=== PATIENT | female | born 1945 | race African-American/Black ===

== ENCOUNTER 2018-01-05 11:40 | Inpatient (IN) | payer MEDICARE, OTHER ==
[~2018-01-05] VITALS: Ht 157.5 cm; Wt 83.9 kg
[~2018-01-05 11:40] MED LIST: ASPIRIN81 MG ORAL; ATIVAN1 MG ORAL; BACLOFEN10 MG ORAL; BENADRYL50 MG ORAL; BUSPIRONE HCL5 M2 ORAL; CARDIZEM60 MG ORAL; CATAPRES0.2 MG ORAL; CEFEPIME HCL1 GM IVPB; CLONIDINE HCL0.1 MG PO; CLONIDINE HCL0.2 MG PO; COLACE250 MG ORAL; COZAAR50 MG ORAL; DIAZEPAM5 MG; DIGOXIN0.125 MG/2 ORAL; DIGOXIN0.25 MG/5 PO; DIGOXIN125 MCG ORAL; DILAUDID1 MG/1 ML IVP; DILTIAZEM HCL60 MG PO; DOCUSATE SODIU100 MG ORAL; DUONEB 0.5-3(2.53 ML HHN; FLUOXETINE HCL20 MG ORAL; FUROSEMIDE40 MG ORAL; HALDOL1 MG ORAL; HEPARIN1000 UNIT/ SUBQ; HYDROCODON-ACE1 EA13 ORAL; IBUPROFEN600 MG ORAL; ISOSORBIDE MONO20 MG PO; LASIX20 M1 ORAL; LEVEMIR100 UNIT/1 SUBQ; LEVOTHYROXINE75 MCG ORAL; LIDODERM700 M1 TOPIC; LISINOPRIL5 MG ORAL; LOSARTAN POTAS100 MG ORAL; LOSARTAN POTASS25 MG ORAL; LOSARTAN POTASS25 MG PO; LOTENSIN40 MG ORAL; METOPROLOL TART25 MG ORAL; MIRTAZAPINE15 M3 ORAL; MOBIC15 MG ORAL; MYLANTA30 M1 PO; NAMENDA XR28 MG PO; NEURONTIN300 MG PO; NITRO-BID1 GM TOPIC; NITROGLYCERIN1 EAC2 TD; NITROSTAT0.4 M1 SL; NORCO 5-325 TA1 EACH ORAL; NOVOLIN 70100 UNIT/1 SUBQ; NOVOLOG100 UNITS1 SUBQ; OMEPRAZOLE20 M3 ORAL; PROTONIX40 MG ORAL; PROZAC20 MG ORAL; REMERON15 MG ORAL; SEROQUEL50 MG ORAL; SOLU-MEDRO40 MG/1 M2 IVP; TRAMADOL HCL100 M2 ORAL; TRAMADOL HCL50 MG ORAL; TRAZODONE HCL150 MG ORAL; TYLENOL650 MG/20. ORAL; VICODIN ES 7.51 EACH ORAL
--- NOTE | 2018-01-05 11:44 | Emergency Room Report ---
History of Present Illness General Source: Patient, EMS Present Illness HPI She is a 72-year-old female brought in by EMS after increased chest pain and shortness of breath. Patient had prior history of COPD as well as congestive heart failure. The patient known diabetic. The patient had been given aspirin as well as nitroglycerin with some improvement. The pain is described as a pressure sensation which radiated to her arm. The patient was noted to be taking Lasix as well as medications for diabetes. The patient is a resident at [facility]. Allergies: Coded Allergies: MORPHINE (Verified Allergy, Mild, Rash, 08/23/12) SHELLFISH DERIVED (Unverified Allergy, Unknown, 01/01/15) ZOLPIDEM TARTRATE (Verified Adverse Reaction, Mild, Altered Mental Status , 11/09/12) severe confusion Patient History Past Medical History: see triage record Reviewed Nursing Documentation: PMH: Agreed; PSxH: Agreed Now: No Review of Systems All Other Systems: negative except mentioned in HPI Physical Exam Sp02 EP Interpretation: reviewed, normal General Appearance: normal inspection, alert, GCS 15, obese, Chronically Ill Head: atraumatic ENT: normal ENT inspection, hearing grossly normal, normal voice Neck: normal inspection, supple, no bony tend, limited range of motion Respiratory: normal inspection, no respiratory distress, no retraction, wheezing Cardiovascular #1: regular rate, rhythm, edema - trace Gastrointestinal: normal inspection, normal bowel sounds, non tender, soft, no guarding, no hernia Musculoskeletal: normal inspection, back normal, normal range of motion Neurologic: normal inspection, alert, oriented x3, responsive, speech normal, motor weakness Psychiatric: normal inspection, judgement/insight normal, mood/affect normal Skin: normal inspection, normal color, no rash Medical Decision Making Diagnostic Impression: Primary Impression: Acute coronary syndrome Additional Impression: COPD with exacerbation ER Course Patient presented for chest pain. Differential diagnosis included but was not limited to acute coronary syndrome, pulmonary embolism, pneumonia, aortic dissection, shingles, pneumothorax, aortic dissection, esophageal rupture, pericarditis. Because of complexity of patient's case laboratory testing and imaging studies were ordered. EKG interpreted by me showed normal sinus rhythm with a rate of [address] or T wave changes.Patient was given breathing treatment as well as Solu -Medrol for COPD. The patient was given Toradol for pain. Patient was discussed with Dr. Boland for inpatient management due to primary care physician Labs Test 01/05/18 12:20 01/05/18 12:45 White Blood Count 8.6 K/UL (4.8-10.8) Red Blood Count 4.84 M/UL (4.20-5.40) Hemoglobin 12.2 G/DL (12.0-16.0) Hematocrit 38.3 % (37.0-47.0) Mean Corpuscular Volume 79 FL (80-99) Mean Corpuscular Hemoglobin 25.1 PG (27.0-31.0) Mean Corpuscular Hemoglobin Concent 31.8 G/DL (32.0-36.0) Red Cell Distribution Width 11.5 % (11.6-14.8) Platelet Count 285 K/UL (150-450) Mean Platelet Volume 6.6 FL (6.5-10.1) Neutrophils (%) (Auto) 59.4 % (45.0-75.0) Lymphocytes (%) (Auto) 29.7 % (20.0-45.0) Monocytes (%) (Auto) 7.6 % (1.0-10.0) Eosinophils (%) (Auto) 2.7 % (0.0-3.0) Basophils (%) (Auto) 0.7 % (0.0-2.0) Sodium Level 133 MMOL/L (136-145) Potassium Level 4.3 MMOL/L (3.5-5.1) Chloride Level 100 MMOL/L (98-107) Carbon Dioxide Level 29 MMOL/L (21-32) Anion Gap 4 mmol/L (5-15) Blood Urea Nitrogen 8 mg/dL (7-18) Creatinine 0.7 MG/DL (0.55-1.30) Estimat Glomerular Filtration Rate mL/min (>60) Glucose Level 264 MG/DL (74-106) Lactic Acid Level 1.20 mmol/L (0.4-2.0) Calcium Level 9.5 MG/DL (8.5-10.1) Troponin I 0.000 ng/mL (0.000-0.056) EKG Diagnostic Results Rate: normal Rhythm: NSR ST Segments: no acute changes Status: improved Disposition: ADMITTED INPATIENT Condition: Stable Art Neri MD Jan 05, 2018 11:44
[2018-01-05] MEDS ORDERED: SOLARAZE100 GM TP (11:47)
[2018-01-05] MEDS ORDERED: METOPROLOL SUCC25 MG ORAL (11:47)
[2018-01-05] MEDS ORDERED: LIPITOR20 MG ORAL (11:47)
[2018-01-05] MEDS ORDERED: ISORDIL30 MG GT (11:47)
[2018-01-05] MEDS ORDERED: NAMENDA10 MG ORAL (11:47)
[2018-01-05] MEDS ORDERED: PROTONIX40 MG ORAL (11:47)
[2018-01-05] MEDS ORDERED: MELATONIN3 MG ORAL (11:47)
[2018-01-05 11:50] VITALS: BP 131/71
[2018-01-05] MEDS ORDERED: Albuterol/Ipratropium 3ml neb HHN ONE (12:00)
[2018-01-05 12:30] VITALS: BP 107/83
[2018-01-05] MEDS ORDERED: Solu-MEDROL 125mg Inj IVP ONE (12:30)
[2018-01-05 12:40] LABS: BASOPHILS % (AUTO) 0.7 % (0.0-2.0); EOSINOPHILS % (AUTO) 2.7 % (0.0-3.0); HEMATOCRIT 38.3 % (37.0-47.0); HEMOGLOBIN 12.2 G/DL (12.0-16.0); LYMPHOCYTES % (AUTO) 29.7 % (20.0-45.0); MEAN CORPUSCULAR VOLUME 79 FL (80-99); MONOCYTES % (AUTO) 7.6 % (1.0-10.0); NEUTROPHILS % (AUTO) 59.4 % (45.0-75.0); PLATELET COUNT 285 K/UL (150-450); RED BLOOD COUNT 4.84 M/UL (4.20-5.40); RED CELL DISTRIBUTION WIDTH 11.5 % (11.6-14.8); WHITE BLOOD COUNT 8.6 K/UL (4.8-10.8)
[2018-01-05] MEDS ORDERED: Ketorolac 30mg Inj IV ONE (12:45)
[2018-01-05 13:05] LABS: ANION GAP 4 mmol/L (5-15); BLOOD UREA NITROGEN 8 mg/dL (7-18); CALCIUM 9.5 MG/DL (8.5-10.1); CARBON DIOXIDE 29 MMOL/L (21-32); CHLORIDE 100 MMOL/L (98-107); CREATININE 0.7 MG/DL (0.55-1.30); POTASSIUM 4.3 MMOL/L (3.5-5.1); SODIUM 133 MMOL/L (136-145)
[2018-01-05 13:20] LABS: APPEARANCE,URINE CLEAR; BILIRUBIN, URINE NEGATIVE (NEGATIVE); COLOR,URINE PALE YELLOW; GLUCOSE, URINE (UA) 1+ (NEGATIVE); KETONES,URINE NEGATIVE (NEGATIVE); LEUKOCYTE ESTERASE ,URINE NEGATIVE (NEGATIVE); NITRITE,URINE NEGATIVE (NEGATIVE); PH,URINE 5 (4.5-8.0); PROTEIN,URINE NEGATIVE (NEGATIVE); UROBILINOGEN,URINE NORMAL MG/DL (0.0-1.0)
[2018-01-05 13:21] LABS: ALANINE AMINOTRANSFERASE 17 U/L (12-78); ALBUMIN 3.5 G/DL (3.4-5.0); ALKALINE PHOSPHATASE 98 U/L (46-116); ASPARTATE AMINO TRANSFERASE 10 U/L (15-37); BILIRUBIN,TOTAL 0.2 MG/DL (0.2-1.0); CKMB 0.6 NG/ML (0.0-3.6); CREATINE KINASE 57 U/L (26-308)
[2018-01-05 14:00] VITALS: BP 140/82
--- NOTE | 2018-01-05 14:39 | Diagnostic Imaging Report ---
Indication: Shortness of breath Technique: One view of the chest Comparison: 02/19/2016 Findings: No acute infiltrates, effusions, or congestion. Tortuous calcified aorta. Normal heart size. Upper mediastinum unremarkable. No significant change Impression: No acute process.
[2018-01-05] MEDS: Norco 5mg/325mg tab ORAL PRN ×2 (16:05→20:54)
[2018-01-05 16:52] VITALS: BP 147/78
[2018-01-05] MEDS: NovoLOG Insulin Flexpen SUBQ SCH ×2 (17:12→20:56)
[2018-01-05] MEDS: Losartan 50mg tab ORAL SCH (18:06)
--- NOTE | 2018-01-05 19:27 | Cardiology Progress Note ---
Assessment/Plan Assessment/Plan The patient is seen and examined, full consult note will be dictated shortly. Objective Last 24 Hour Vital Signs Date Time Temp Pulse Resp B/P (MAP) Pulse Ox O2 Delivery O2 Flow Rate FiO2 01/05/18 18:06 147/78 01/05/18 16:52 97.7 65 24 147/78 (101) 97 65 01/05/18 16:35 97.7 01/05/18 15:57 74 01/05/18 15:30 Nasal Cannula 2.0 01/05/18 14:55 20 145/78 98 Nasal Cannula 1.0 01/05/18 14:00 72 16 140/82 100 Nasal Cannula 1.0 28 01/05/18 12:40 85 16 100 Nasal Cannula 2.0 01/05/18 12:30 66 19 107/83 98 Nasal Cannula 1.0 24 01/05/18 12:29 24 01/05/18 12:29 98 16 99 Nasal Cannula 1.0 24 01/05/18 12:29 98 16 Nasal Cannula 1.0 01/05/18 11:50 95 16 Nasal Cannula 1.0 01/05/18 11:50 98.1 65 16 131/71 100 Room Air 01/05/18 11:37 97.9 75 20 148/79 96 Room Air Laboratory Tests Test 01/05/18 12:20 01/05/18 12:45 White Blood Count 8.6 K/UL (4.8-10.8) Red Blood Count 4.84 M/UL (4.20-5.40) Hemoglobin 12.2 G/DL (12.0-16.0) Hematocrit 38.3 % (37.0-47.0) Mean Corpuscular Volume 79 FL (80-99) L Mean Corpuscular Hemoglobin 25.1 PG (27.0-31.0) L Mean Corpuscular Hemoglobin Concent 31.8 G/DL (32.0-36.0) L Red Cell Distribution Width 11.5 % (11.6-14.8) L Platelet Count 285 K/UL (150-450) Mean Platelet Volume 6.6 FL (6.5-10.1) Neutrophils (%) (Auto) 59.4 % (45.0-75.0) Lymphocytes (%) (Auto) 29.7 % (20.0-45.0) Monocytes (%) (Auto) 7.6 % (1.0-10.0) Eosinophils (%) (Auto) 2.7 % (0.0-3.0) Basophils (%) (Auto) 0.7 % (0.0-2.0) Sodium Level 133 MMOL/L (136-145) L Potassium Level 4.3 MMOL/L (3.5-5.1) Chloride Level 100 MMOL/L (98-107) Carbon Dioxide Level 29 MMOL/L (21-32) Anion Gap 4 mmol/L (5-15) L Blood Urea Nitrogen 8 mg/dL (7-18) Creatinine 0.7 MG/DL (0.55-1.30) Estimat Glomerular Filtration Rate mL/min (>60) Glucose Level 264 MG/DL (74-106) H Lactic Acid Level 1.20 mmol/L (0.4-2.0) Calcium Level 9.5 MG/DL (8.5-10.1) Total Bilirubin 0.2 MG/DL (0.2-1.0) Aspartate Amino Transf (AST/SGOT) 10 U/L (15-37) L Alanine Aminotransferase (ALT/SGPT) 17 U/L (12-78) Alkaline Phosphatase 98 U/L (46-116) Total Creatine Kinase 57 U/L (26-308) Creatine Kinase MB 0.6 NG/ML (0.0-3.6) Creatine Kinase MB Relative Index 1.0 Troponin I 0.000 ng/mL (0.000-0.056) Pro-B-Type Natriuretic Peptide 331 pg/mL (0-125) H Total Protein 7.0 G/DL (6.4-8.2) Albumin 3.5 G/DL (3.4-5.0) Globulin 3.5 g/dL Albumin/Globulin Ratio 1.0 (1.0-2.7) Lipase 162 U/L (73-393) Urine Color Pale yellow Urine Appearance Clear Urine pH 5 (4.5-8.0) Urine Specific [place] 1.010 (1.005-1.035) Urine Protein Negative (NEGATIVE) Urine Glucose (UA) 1+ (NEGATIVE) H Urine Ketones Negative (NEGATIVE) Urine Blood Negative (NEGATIVE) Urine Nitrite Negative (NEGATIVE) Urine Bilirubin Negative (NEGATIVE) Urine Urobilinogen Normal MG/DL (0.0-1.0) Urine Leukocyte Esterase Negative (NEGATIVE) Iggy Holcomb MD Jan 05, 2018 19:27
[2018-01-05] MEDS: Albuterol/Ipratropium 3ml neb HHN SCH ×2 (19:50→23:35)
[2018-01-05 20:00] VITALS: BP 167/86
[2018-01-05] MEDS: Metoprolol Succinate XL 25mg tab ORAL SCH (20:53)
[2018-01-05] MEDS: Atorvastatin 20mg tab ORAL SCH (20:53)
[2018-01-05] MEDS ORDERED: TraZODone 100mg tab ORAL SCH (21:00)
[2018-01-05] MEDS ORDERED: TraZODone 100mg tab ORAL PRN (21:00)
--- NOTE | 2018-01-05 22:45 | History and Physical Report ---
DATE OF ADMISSION: 01/05/2018 HISTORY OF PRESENT ILLNESS: This is an elderly 72-year-old female, who came to the emergency room for having a left-sided chest pain associated with shortness of breath. No palpitation. No nausea or vomiting. PAST MEDICAL HISTORY: Significant for history of coronary artery disease, congestive heart failure, hypertension, chronic obstructive pulmonary disease, chronic back pain, severe degenerative arthritis, anxiety, and depression. MEDICATIONS: See the list. ALLERGIES: NKA. SOCIAL HISTORY: The patient lives at longterm. Mostly, wheelchair bound. REVIEW OF SYSTEMS: Feeling generalized weakness and chest pain is resolved. OBJECTIVE: VITAL SIGNS: Blood pressure is 130/70, pulse 60 to 70s, and respirations 18. No fever. HEENT: NAD. CHEST: Bilateral few crackles. CARDIOVASCULARLY: Regular rhythm. No gallop. No murmur. ABDOMEN: Soft. Positive bowel sounds. EXTREMITIES: CCE. NEUROLOGICAL: Generalized weakness. ASSESSMENT: 1. Acute coronary syndrome, rule out myocardial infarction. 2. Hypertension. 3. Diabetes. 4. Chronic obstructive pulmonary disease. 5. Degenerative arthritis. PLAN: 1. We will admit on telemetry bed. Rule out of myocardial infarction. 2. Consider Cardiology consult. 3. Check CPK troponin. 4. Continue aspirin and beta-radha. 5. Continue sliding scale and Accu-Chek. 6. The patient probably needs a stress test. Clemente Boland M.D. DR: CORAL JOB#: [id number] CC:
[2018-01-06] VITALS: BP 140/66
[2018-01-06] MEDS: Albuterol/Ipratropium 3ml neb HHN SCH ×7 (03:18→23:32)
[2018-01-06 04:00] VITALS: BP 145/60
[2018-01-06] MEDS: NovoLOG Insulin Flexpen SUBQ SCH ×4 (06:13→20:57)
[2018-01-06 08:00] VITALS: BP 119/61
[2018-01-06] MEDS: Nitroglycerin Subl 0.4mg tab SL PRN ×2 (08:09→08:17)
[2018-01-06] MEDS ORDERED: Memantine 10mg tab ORAL SCH (09:00)
[2018-01-06] MEDS: Memantine 10mg tab ORAL SCH ×2 (09:10→17:24)
[2018-01-06] MEDS: Meloxicam 15 MG TAB ORAL SCH (09:10)
[2018-01-06] MEDS: Furosemide 40mg tab ORAL SCH (09:11)
[2018-01-06] MEDS: Aspirin Baby 81mg ORAL SCH (09:11)
[2018-01-06] MEDS: Docusate 250mg cap ORAL SCH (09:11)
[2018-01-06] MEDS: Losartan 50mg tab ORAL SCH ×2 (09:12→17:23)
[2018-01-06] MEDS: Metoprolol Succinate XL 25mg tab ORAL SCH ×2 (09:12→20:55)
[2018-01-06 12:00] VITALS: BP 130/74
[2018-01-06] MEDS: Norco 5mg/325mg tab ORAL PRN ×3 (12:46→21:09)
[2018-01-06 16:00] VITALS: BP 121/59
[2018-01-06 20:00] VITALS: BP 122/64
--- NOTE | 2018-01-06 20:39 | Consultation ---
History of Present Illness General Date patient seen: Jan 05, 2018 Chief Complaint: Chest Pain Present Illness HPI 72-year-old female, who came to the emergency room for having a left-sided chest pain associated with shortness of breath. the pt was anxiety her daughter was in the room/ the pt stated that she feels anxiety most of the day and has insomnia. she is currently on trazodone. no si/hi Allergies: Coded Allergies: MORPHINE (Verified Allergy, Mild, Rash, 08/23/12) SHELLFISH DERIVED (Unverified Allergy, Unknown, 01/01/15) ZOLPIDEM TARTRATE (Verified Adverse Reaction, Mild, Altered Mental Status , 11/09/12) severe confusion Medication History Scheduled Aspirin* (Aspirin*), 81 MG ORAL DAILY, (Reported) Atorvastatin Calcium* (Lipitor*), 20 MG ORAL BEDTIME, (Reported) Buspirone HCl* (Buspirone HCl*), 5 MG ORAL HS, (Reported) Clonidine Hcl (Clonidine Hcl), 0.1 MG PO DAILY, (Reported) Diclofenac Sodium (Solaraze), 2 GM TP FOUR TIMES A DAY, (Reported) Docusate Sodium (Docusate Sodium), 250 MG ORAL DAILY, (Reported) Furosemide* (Lasix*), 40 MG ORAL DAILY, (Reported) Gabapentin (Neurontin), 600 MG PO BID, (Reported) Insulin Detemir (Levemir), 10 UNITS SUBQ am, (Reported) Ipratropium/Albuterol Sulfate (DuoNeb 0.5-3(2.5)mg/3ml), 3 ML HHN Q4HR, ( Reported) Levothyroxine Sodium* (Levothyroxine Sodium*), 75 MCG ORAL DAILY, (Reported) Losartan Potassium* (Cozaar*), 50 MG ORAL TWICE A DAY, (Reported) Meloxicam* (Mobic*), 15 MG ORAL DAILY, (Reported) Memantine Hcl* (Namenda*), 28 MG ORAL DAILY, (Reported) Metoprolol Succinate* (Metoprolol Succinate*), 25 MG ORAL TWICE A DAY, (Reported ) Pantoprazole* (Protonix*), 40 MG ORAL DAILY, (Reported) Trazodone* (Trazodone*), 150 MG ORAL BEDTIME, (Reported) Scheduled PRN Insulin Aspart (Novolog Flexpen), UNITS SUBQ ACHS PRN for Hyperglycemia, ( Reported) Melatonin (Melatonin), 3 MG ORAL BEDTIME PRN for Insomnia, (Reported) Tramadol Hcl* (Ultram*), 50 MG ORAL Q6H PRN for For Pain Miscellaneous Medications Isosorbide Dinitrate (Isosorbide Dinitrate), 30 MG GT, (Reported) Patient History Limited by: medical condition History Provided By: Patient, Medical Record, PMD Healthcare decision maker self Resuscitation status Do Not Resuscitate Advanced Directive on File No Past Medical/Surgical History Past Medical/Surgical History: (1) Acute cystitis (2) dehydration (3) headache (4) Throat pain (5) weakness (6) Fibromyalgia (7) Fibromyalgia (8) Knee sprain (9) Injury of lower extremity (10) Unable to ambulate (11) Headache (12) Concussion syndrome (13) Post concussion syndrome (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 (15) Herniated nucleus pulposus, lumbar (16) H/O: CVA (cerebrovascular accident) (17) Attacks of weakness (18) Episode of generalized weakness (19) Urinary tract infection (20) Encephalopathy acute (21) Neck pain (22) Abdominal pain of unknown etiology (23) Accelerated hypertension (24) Chest pain (25) anemia (26) Intractable low back pain (27) Lumbar radiculopathy (28) SOB (shortness of breath) (29) COPD exacerbation (30) Osteoarthritis of knees, bilateral (31) weakness (32) DM (diabetes mellitus) (33) Cardiomegaly (34) COPD (chronic obstructive pulmonary disease) (35) Osteoarthritis (36) Hypertension (37) Bilateral knee pain (38) Congestive heart failure (CHF) (39) Chronic pain (40) Chest pain (41) Acute coronary syndrome (42) COPD with exacerbation Review of Systems Psychiatric: Reports: prior hx, anxiety, depressed feelings, emotional problems Physical Exam General Appearance: no apparent distress, alert Neurologic: oriented x 3, responsive, depressed affect Last 24 Hour Vital Signs Date Time Temp Pulse Resp B/P (MAP) Pulse Ox O2 Delivery O2 Flow Rate FiO2 01/06/18 20:00 79 01/06/18 19:50 77 18 99 Nasal Cannula 2.0 28 01/06/18 19:40 75 18 98 Nasal Cannula 2.0 28 11/2/18 17:23 121/59 01/06/18 16:43 79 20 100 Nasal Cannula 2.0 28 01/06/18 16:00 75 01/06/18 16:00 98.4 81 20 121/59 (79) 98 01/06/18 14:35 81 18 100 Nasal Cannula 2.0 28 01/06/18 13:51 82 20 99 Nasal Cannula 2.0 28 01/06/18 13:44 79 18 100 Nasal Cannula 2.0 28 01/06/18 12:00 73 01/06/18 12:00 97.2 76 20 130/74 (92) 95 01/06/18 09:12 83 141/90 01/06/18 09:12 141/90 01/06/18 09:11 141/90 01/06/18 09:00 Nasal Cannula 2.0 01/06/18 08:17 131/74 01/06/18 08:09 131/74 01/06/18 08:00 100 01/06/18 08:00 98.3 83 20 119/61 (80) 95 01/06/18 07:40 80 20 99 Nasal Cannula 2.0 28 01/06/18 07:32 82 20 100 Nasal Cannula 2.0 28 01/06/18 04:00 97.2 81 19 145/60 (88) 100 01/06/18 04:00 83 01/06/18 03:24 78 20 99 Nasal Cannula 2.0 28 01/06/18 03:18 71 20 97 Nasal Cannula 2.0 28 01/06/18 00:00 98.5 95 16 140/66 (90) 95 01/05/18 23:45 85 20 99 Nasal Cannula 2.0 28 01/05/18 23:34 89 24 100 Nasal Cannula 2.0 28 01/05/18 21:00 Nasal Cannula 2.0 01/05/18 20:53 82 167/86 Intake and Output 01/05/18 01/06/18 19:00 07:00 Intake Total 370 ml Balance 370 ml Intake Oral 370 ml # Voids 3 1 Laboratory Tests Test 01/06/18 05:35 Troponin I 0.017 ng/mL (0.000-0.056) Height (Feet): 5 Height (Inches): 2.00 Weight (Pounds): 178 Medications Current Medications Medications (Trade) Dose Ordered Sig/Brandi Route PRN Reason Start Time Stop Time Status Last Admin Dose Admin Acetaminophen (Tylenol) 650 mg Q4H PRN ORAL Mild Pain (Pain Scale 1-3) 01/05/18 15:45 02/04/18 15:44 Acetaminophen/ Hydrocodone Bitart ([place] 5/325) 1 tab Q4H PRN ORAL Severe Pain (Pain Scale 7-10) 01/05/18 15:45 01/12/18 15:44 01/06/18 17:23 Albuterol/ Ipratropium (Albuterol/ Ipratropium) 3 ml Q4HR HHN 01/05/18 17:00 01/10/18 16:59 01/06/18 19:40 Aspirin (ASA) 81 mg DAILY ORAL 01/06/18 09:00 02/05/18 08:59 01/06/18 09:11 Atorvastatin Calcium (Lipitor) 20 mg BEDTIME ORAL 01/05/18 21:00 02/04/18 20:59 01/05/18 20:53 Clonidine HCl (Catapres Tab) 0.1 mg DAILY ORAL 01/06/18 09:00 02/05/18 08:59 01/06/18 09:11 Dextrose (Dextrose 50%) 25 ml Q30M PRN IV Hypoglycemia 01/05/18 15:45 02/04/18 15:44 Dextrose (Dextrose 50%) 50 ml Q30M PRN IV Hypoglycemia 01/05/18 15:45 02/04/18 15:44 Docusate Sodium (Colace) 250 mg DAILY ORAL 01/06/18 09:00 02/05/18 08:59 01/06/18 09:11 Furosemide (Lasix) 40 mg DAILY ORAL 01/06/18 09:00 02/05/18 08:59 01/06/18 09:11 Gabapentin (Neurontin) 600 mg BID ORAL 01/05/18 18:00 02/04/18 17:59 01/06/18 17:24 Insulin Aspart (NovoLOG) BEFORE MEALS AND HS SUBQ 01/05/18 16:30 02/04/18 16:29 01/06/18 16:27 Levothyroxine Sodium (Synthroid) 75 mcg DAILY@0630 ORAL 01/07/18 06:30 02/06/18 06:29 Losartan Potassium (Cozaar) 50 mg TWICE A DAY ORAL 01/05/18 18:00 02/04/18 17:59 01/06/18 17:23 Meloxicam (Mobic) 15 mg DAILY ORAL 01/06/18 09:00 02/05/18 08:59 01/06/18 09:10 Memantine (Namenda) 10 mg BID ORAL 01/06/18 09:00 02/05/18 08:59 01/06/18 17:24 Metoprolol Succinate (Toprol XL) 25 mg Q12HR ORAL 01/05/18 21:00 02/04/18 20:59 01/06/18 09:12 Nitroglycerin (Ntg) 0.4 mg Q5M PRN SL Prn Chest Pain 01/06/18 14:00 02/04/18 15:44 Pantoprazole (Protonix) 40 mg DAILY ORAL 01/06/18 09:00 02/05/18 08:59 01/06/18 09:11 Trazodone HCl (Desyrel) 100 mg BEDTIME PRN ORAL Insomnia 01/05/18 21:00 02/04/18 20:59 01/05/18 20:54 Assessment/Plan Assessment/Plan anxiety d/o trazadone taylor rivero ro/Angela Ibarra MD Jan 06, 2018 20:39
--- NOTE | 2018-01-06 20:42 | General Progress Note ---
Assessment/Plan Status: stable, progressing Assessment/Plan anxiety d/o Ativan prn trazodone BuSpar provided ro/st Subjective Date patient seen: Jan 06, 2018 Neurologic/Psychiatric: Reports: anxiety, depressed, emotional problems Allergies: Coded Allergies: MORPHINE (Verified Allergy, Mild, Rash, 08/23/12) SHELLFISH DERIVED (Unverified Allergy, Unknown, 01/01/15) ZOLPIDEM TARTRATE (Verified Adverse Reaction, Mild, Altered Mental Status , 11/09/12) severe confusion Subjective the daughter was in the room yelling at her that she needs to work on her [place] Objective Last 24 Hour Vital Signs Date Time Temp Pulse Resp B/P (MAP) Pulse Ox O2 Delivery O2 Flow Rate FiO2 01/06/18 20:00 79 01/06/18 19:50 77 18 99 Nasal Cannula 2.0 28 01/06/18 19:40 75 18 98 Nasal Cannula 2.0 28 01/06/18 17:23 121/59 01/06/18 16:43 79 20 100 Nasal Cannula 2.0 28 01/06/18 16:00 75 01/06/18 16:00 98.4 81 20 121/59 (79) 98 01/06/18 14:35 81 18 100 Nasal Cannula 2.0 28 01/06/18 13:51 82 20 99 Nasal Cannula 2.0 28 01/06/18 13:44 79 18 100 Nasal Cannula 2.0 28 01/06/18 12:00 73 01/06/18 12:00 97.2 76 20 130/74 (92) 95 01/06/18 09:12 83 141/90 01/06/18 09:12 141/90 01/06/18 09:11 141/90 01/06/18 09:00 Nasal Cannula 2.0 01/06/18 08:17 131/74 01/06/18 08:09 131/74 01/06/18 08:00 100 01/06/18 08:00 98.3 83 20 119/61 (80) 95 01/06/18 07:40 80 20 99 Nasal Cannula 2.0 28 01/06/18 07:32 82 20 100 Nasal Cannula 2.0 28 01/06/18 04:00 97.2 81 19 145/60 (88) 100 01/06/18 04:00 83 01/06/18 03:24 78 20 99 Nasal Cannula 2.0 28 01/06/18 03:18 71 20 97 Nasal Cannula 2.0 28 01/06/18 00:00 98.5 95 16 140/66 (90) 95 01/05/18 23:45 85 20 99 Nasal Cannula 2.0 28 01/05/18 23:34 89 24 100 Nasal Cannula 2.0 28 01/05/18 21:00 Nasal Cannula 2.0 01/05/18 20:53 82 167/86 Intake and Output 01/05/18 01/06/18 19:00 07:00 Intake Total 370 ml Balance 370 ml Intake Oral 370 ml # Voids 3 1 Laboratory Tests 01/06/18 05:35: Troponin I 0.017 Height (Feet): 5 Height (Inches): 2.00 Weight (Pounds): 178 General Appearance: no apparent distress, alert Neurologic: oriented x 3, responsive, depressed affect Angela Nicole MD Jan 06, 2018 20:42
[2018-01-06] MEDS: Atorvastatin 20mg tab ORAL SCH (20:55)
[2018-01-06] MEDS: LORazepam 1mg tab ORAL PRN (21:08)
--- NOTE | 2018-01-06 21:30 | Progress Note ---
DATE: 01/06/2018 SUBJECTIVE: This is an elderly 72-year-old female, currently awake and she is complaining of chest pain and having some sore throat. OBJECTIVE: VITAL SIGNS: Blood pressure 121/59, pulse 70, respirations 20, and temperature is 98.4. HEENT: NAD. CHEST: Bilaterally clear. CARDIOVASCULAR: Regular rhythm. No gallop. No murmur. ABDOMEN: Soft. EXTREMITIES: CCE. NEUROLOGICAL: Generalized weakness. LABORATORY DATA: Troponin 0.042, . Her urine showing 1+ glucose. ASSESSMENT AND PLAN: 1. Diabetes, poorly controlled. 2. Chest pain, rule out of MA. 3. Diabetes. 4. Hypertension. 5. Chronic pain. 6. COPD. We will currently continue bronchodilator treatments. Continue PT and OT. Cardiac workup. Clemente Boland M.D. DR: ANAM JOB#: [id number] CC:
[2018-01-07] VITALS: BP 139/68
[2018-01-07] MEDS: Solu-MEDROL 40mg Inj IVP SCH ×3 (00:07→21:19)
--- NOTE | 2018-01-07 01:52 | Cardiology Progress Note ---
Assessment/Plan Assessment/Plan LATE ENTRY NOTE DATE OF SERVICE: 01/06/2018 TIME OF SERVICE: 20:05 1. Dyspnea likely acute exacerbation of COPD, start SoluMedrol 40mg IVP q8, continue breathing treatment, pulmonary toilet. Awaiting report of 2D echo. 2. Chest pain, likely due to underlying pulmonary pathology, likely bronchoconstriction, echo for assessment of LV systolic and diastolic function, AMI is ruled out, ECG reveals no ischemic changes. 3. Hx of CHF, clinically does not appear to be in heart failure, 2D echo would shed light on this condition. Subjective Subjective Sinus rhythm at rate of 79. Feeling the same, still SOB. Objective Last 24 Hour Vital Signs Date Time Temp Pulse Resp B/P (MAP) Pulse Ox O2 Delivery O2 Flow Rate FiO2 01/07/18 00:00 98.5 82 20 139/68 (91) 94 01/06/18 23:42 80 18 99 Nasal Cannula 2.0 28 01/06/18 23:32 80 18 95 Nasal Cannula 2.0 28 01/06/18 21:00 Nasal Cannula 2.0 01/06/18 20:55 79 121/59 01/06/18 20:00 98.3 79 22 122/64 (83) 93 01/06/18 20:00 79 01/06/18 19:50 77 18 99 Nasal Cannula 2.0 28 01/06/18 19:40 75 18 98 Nasal Cannula 2.0 28 01/06/18 17:23 121/59 01/06/18 16:43 79 20 100 Nasal Cannula 2.0 28 01/06/18 16:00 75 01/06/18 16:00 98.4 81 20 121/59 (79) 98 01/06/18 14:35 81 18 100 Nasal Cannula 2.0 28 01/06/18 13:51 82 20 99 Nasal Cannula 2.0 28 01/06/18 13:44 79 18 100 Nasal Cannula 2.0 28 01/06/18 12:00 73 01/06/18 12:00 97.2 76 20 130/74 (92) 95 01/06/18 09:12 83 141/90 01/06/18 09:12 141/90 01/06/18 09:11 141/90 01/06/18 09:00 Nasal Cannula 2.0 01/06/18 08:17 131/74 01/06/18 08:09 131/74 01/06/18 08:00 100 01/06/18 08:00 98.3 83 20 119/61 (80) 95 01/06/18 07:40 80 20 99 Nasal Cannula 2.0 28 01/06/18 07:32 82 20 100 Nasal Cannula 2.0 28 01/06/18 04:00 97.2 81 19 145/60 (88) 100 01/06/18 04:00 83 01/06/18 03:24 78 20 99 Nasal Cannula 2.0 28 01/06/18 03:18 71 20 97 Nasal Cannula 2.0 28 Intake and Output 01/06/18 01/07/18 19:00 07:00 Intake Total 480 ml Output Total 650 ml Balance -170 ml Intake Oral 480 ml Output Urine Total 650 ml # Voids 3 Laboratory Tests Test 01/06/18 05:35 Troponin I 0.017 ng/mL (0.000-0.056) Objective HEENT: atraumatic, normocephalic, PERRLA, EOMI Neck: JVP less than 5 cm, no carotid bruit. Respiratory: Diminished BS both lungs Cardiovascular: regular rate, rhythm, distant S1S2, no murmurs, gallops or rubs. Gastrointestinal: normal bowel sounds, non tender, soft, no guarding, no hernia Musculoskeletal: no edema, clubbing or cyanosis. Iggy Holcomb MD Jan 07, 2018 01:52
[2018-01-07] MEDS: Albuterol/Ipratropium 3ml neb HHN SCH ×6 (03:15→23:42)
--- NOTE | 2018-01-07 03:45 | Consultation ---
DATE OF CONSULTATION: 01/05/2018 CARDIOLOGY CONSULTATION: CONSULTING PHYSICIAN: Iggy Holcomb M.D. REFERRING PHYSICIAN: Clemente Boland M.D. REASON FOR CONSULTATION: Management of dyspnea from the cardiac standpoint. HISTORY OF PRESENT ILLNESS: The patient is a very pleasant 72-year-old female, who is brought in by EMS after increasing chest tightness and worsening shortness of breath. The patient has a history of chronic obstructive pulmonary disease and is on home oxygen and inhaler therapy at home. The patient upon arrival of EMS was given aspirin as well as nitroglycerin with some improvement. The patient states that the chest pain is pressure and tightness with radiation to the left arm. The patient also has a prior history of congestive heart failure and received Lasix on a regular basis. She is a resident of [facility] under the care of Dr. Clemente Boland. At the time of arrival to the hospital, her blood pressure was 148/79, heart rate of 75. Initial 12-lead electrocardiogram shows sinus rhythm at a rate of 68. No acute ST and T-wave abnormalities. In the emergency department, chest x-ray was done and essentially showed normal cardiac silhouette with no acute cardiopulmonary disease. She was given IV Solu-Medrol for an acute exacerbation of COPD and was admitted to telemetry for further evaluation and management. Cardiology consultation was made at the request of Dr. Boland. PAST MEDICAL HISTORY: Includin. COPD. 2. Congestive heart failure. 3. Diabetes mellitus. 4. Dyslipidemia. 5. Hypertension. 6. Insomnia. LIST OF MEDICATIONS: Aspirin 81 mg p.o. daily, atorvastatin 20 mg p.o. at bedtime, buspirone 5 mg p.o. at bedtime, clonidine 0.1 mg p.o. daily, diclofenac sodium 2 g TP 4 times a day, Colace 250 mg p.o. daily, Lasix 40 mg p.o. daily, gabapentin 600 mg twice daily, insulin aspart 4 units for blood sugar above 200 and 8 units above 300 and so forth, insulin detemir 10 units subcutaneous every morning, DuoNeb 3 mL HHN q.4 h., isosorbide dinitrate 30 mg p.o. 3 times a day, levothyroxine 75 mcg p.o. daily, Cozaar 50 mg twice daily, melatonin 3 mg at bedtime p.r.n. insomnia, Meloxicam 15 mg p.o. daily, Namenda 28 mg p.o. daily, metoprolol 25 mg twice daily, Protonix 40 mg p.o. daily, Ultram 50 mg p.o. q.6 h. p.r.n. pain, and trazodone 150 mg p.o. at bedtime. ALLERGIES: To morphine, shellfish, and zolpidem. SURGICAL HISTORY: None. FAMILY HISTORY: No premature coronary artery disease in the first-degree relatives. REVIEW OF SYSTEMS: HEENT: Denies any headache, diplopia, or blurred vision. CONSTITUTIONAL: Complains of generalized weakness, but no fever, chills, or night sweats. CARDIOVASCULAR: Has complained of chest tightness with radiation to the left arm, associated shortness of breath, progressive worsening despite use of an inhaler and oxygen at home. Denies any PND, orthopnea, leg swelling, or syncope. PULMONARY: Complains of cough, shortness of breath, and wheezing. GASTROINTESTINAL: Denies any nausea, vomiting, diarrhea, constipation, abdominal pain, or GI bleed. GENITOURINARY: Denies any hematuria, dysuria, or incontinence. NEUROLOGY: Denies any motor dysfunction, sensory deficit, or altered speech. PHYSICAL EXAMINATION: VITAL SIGNS: Blood pressure was 148/79, pulse of 75, respirations 20, temperature 97.9 degrees Fahrenheit, and O2 saturation 96% on room air. GENERAL: The patient is a very unfortunate 72-year-old female, in mild respiratory distress. Alert and oriented x4. HEENT: Atraumatic and normocephalic. Anicteric. Pupils are equal, round, and reactive to light and accommodation. Extraocular muscles intact. NECK: JVP less than 5 cm. No carotid bruit. Carotid upstroke is 2+ bilaterally. CARDIOVASCULAR: Normal S1, S2. Regular rate and rhythm. No murmurs, gallops, or rubs. PMI is at fourth intercostal space in the midclavicular line. LUNGS: Diminished breath sounds in both lungs with no evidence of rhonchi or crackles. ABDOMEN: Soft, nontender, and nondistended. No hepatosplenomegaly. Positive bowel sounds. EXTREMITIES: No evidence of edema, clubbing, or cyanosis. LABORATORY FINDINGS: WBC 8.6, hemoglobin 12.2, hematocrit 38.3, and platelet count 285. Sodium 133, potassium 4.3, chloride 100, bicarbonate 21, BUN 8, creatinine 0.7, glucose is 264, and calcium 9.5. Troponin I 0.0. ProBNP was 331. ASSESSMENT AND PLAN: The patient is a very unfortunate 72-year-old female, seen in Cardiology consultation at the request of Dr. Boland. 1. Dyspnea, most likely acute exacerbation of chronic obstructive pulmonary disease. The patient will be continued on inhaler therapy with Solu-Medrol and pulmonary toilet. Slight elevation of troponin I level may be secondary to RV strain in association with prolonged chronic obstructive pulmonary disease. Chest x-ray shows normal cardiac silhouette, which is most likely ruling out congestive heart failure. However, 2D echocardiography will be warranted versus left ventricular systolic and diastolic function. Further therapeutic and diagnostic decision will be based on the results of 2D echocardiography. 2. History of diabetes mellitus. The patient will benefit from combination of aspirin and atorvastatin. Hemoglobin A1c will be checked. 3. History of congestive heart failure in the past. Chest x-ray as mentioned above shows normal cardiac silhouette. However, 2D echocardiography will further delineate the left ventricular systolic and diastolic function. 4. Chronic respiratory failure, on oxygen therapy. We will obtain ABG. 5. Hyponatremia. This could be secondary to hyperglycemia in combination of Lasix therapy. I would like to thank, Dr. Boland, for allowing me to participate in the care of this patient. Iggy Holcomb M.D. DR: JOSEPH JOB#: [id number] CC:
[2018-01-07 04:00] VITALS: BP 127/74
[2018-01-07] MEDS: NovoLOG Insulin Flexpen SUBQ SCH ×5 (06:25→21:22)
[2018-01-07] MEDS: Nitroglycerin Subl 0.4mg tab SL PRN ×3 (07:52→08:11)
[2018-01-07 08:00] VITALS: BP 158/87
[2018-01-07 08:56] LABS: ANION GAP 8 mmol/L (5-15); BLOOD UREA NITROGEN 16 mg/dL (7-18); CALCIUM 10.9 MG/DL (8.5-10.1); CARBON DIOXIDE 27 MMOL/L (21-32); CHLORIDE 100 MMOL/L (98-107); CREATININE 0.9 MG/DL (0.55-1.30); POTASSIUM 5.8 MMOL/L (3.5-5.1); SODIUM 135 MMOL/L (136-145)
[2018-01-07] MEDS ORDERED: dilTIAZem HCl CD 120mg cap ORAL SCH (09:00)
[2018-01-07] MEDS: Aspirin Baby 81mg ORAL SCH (09:41)
[2018-01-07] MEDS: BusPIRone 10mg Tab ORAL SCH ×3 (09:41→17:27)
[2018-01-07] MEDS: Meloxicam 15 MG TAB ORAL SCH (09:41)
[2018-01-07] MEDS: Docusate 250mg cap ORAL SCH (09:41)
[2018-01-07] MEDS: Memantine 10mg tab ORAL SCH ×2 (09:43→17:28)
[2018-01-07] MEDS: Furosemide 40mg tab ORAL SCH (09:44)
[2018-01-07] MEDS: Losartan 50mg tab ORAL SCH ×2 (10:21→17:27)
[2018-01-07] MEDS ORDERED: dilTIAZem HCl 30mg tab ORAL ONE (10:45)
[2018-01-07] MEDS: LORazepam 1mg tab ORAL PRN ×2 (11:36→16:43)
[2018-01-07 12:00] VITALS: BP 145/84
[2018-01-07] MEDS ORDERED: Azithromycin 500 MG in D5W 275 ML IV SCH (14:00)
--- NOTE | 2018-01-07 14:01 | Diagnostic Imaging Report ---
EXAM: XR Chest, 1 View CLINICAL HISTORY: Shortness of breath TECHNIQUE: Frontal view of the chest. COMPARISON: Chest x-ray dated 01/05/18 FINDINGS: Lungs: Unremarkable. The lungs appear clear. No confluent pulmonary opacities. Pleural space: Unremarkable. The costophrenic angles are sharp. No visible pneumothorax. Heart: Unremarkable. No cardiomegaly. Mediastinum: Unremarkable. Bones/joints: Unremarkable. Tubes, lines and devices: EKG leads overlie the thorax. IMPRESSION: No acute findings.
--- NOTE | 2018-01-07 15:02 | Cardiology Report ---
APPROVED REPORT EKG Measurement Heart [id number] Normal sinus rhythm Septal infarct, age undetermined Abnormal ECG
--- NOTE | 2018-01-07 15:12 | Cardiology Report ---
APPROVED REPORT EKG Measurement Heart [id number] Sinus rhythm Abnormal ECG
--- NOTE | 2018-01-07 15:41 | Cardiology Progress Note ---
Assessment/Plan Assessment/Plan 1. Dyspnea likely acute exacerbation of COPD, continue SoluMedrol, breathing treatment, pulmonary toilet. 2D echo reveals acute on chronic diastolic CHF with normal LVEF, Off lasix foe now. 2. Chest pain, likely due to underlying pulmonary pathology, likely bronchoconstriction, no wall motion abnormalities per echo, AMI is ruled out, ECG reveals no ischemic changes. 3. Acute on chronic diastolic CHF. 4. HTN, increase Diltiazem to 60mg tid. Subjective Subjective Sinus tachycardia at 103. Admits to having less SOB. Objective Last 24 Hour Vital Signs Date Time Temp Pulse Resp B/P (MAP) Pulse Ox O2 Delivery O2 Flow Rate FiO2 01/07/18 15:19 Nasal Cannula 2.0 28 01/07/18 15:19 Nasal Cannula 2.0 28 01/07/18 12:00 103 01/07/18 12:00 97.2 107 21 145/84 (104) 95 01/07/18 11:02 94 20 99 Nasal Cannula 2.0 28 01/07/18 10:56 98 18 98 Nasal Cannula 2.0 28 01/07/18 10:21 155/87 01/07/18 09:44 107 155/87 01/07/18 09:00 Nasal Cannula 2.0 01/07/18 08:11 158/88 01/07/18 08:02 159/88 01/07/18 08:00 97.0 107 20 158/87 (110) 95 01/07/18 08:00 114 01/07/18 07:52 166/89 01/07/18 07:20 96 18 100 Nasal Cannula 2.0 28 01/07/18 07:10 99 20 100 Nasal Cannula 2.0 28 01/07/18 04:00 88 01/07/18 04:00 97.2 88 21 127/74 (91) 95 01/07/18 03:25 83 18 99 Nasal Cannula 2.0 28 01/07/18 03:15 84 18 97 Nasal Cannula 2.0 28 01/07/18 00:00 98.5 82 20 139/68 (91) 94 01/07/18 00:00 79 01/07/18 00:00 83 01/06/18 23:42 80 18 99 Nasal Cannula 2.0 28 01/06/18 23:32 80 18 95 Nasal Cannula 2.0 28 01/06/18 21:00 Nasal Cannula 2.0 01/06/18 20:55 79 121/59 01/06/18 20:00 98.3 79 22 122/64 (83) 93 01/06/18 20:00 79 01/06/18 19:50 77 18 99 Nasal Cannula 2.0 28 01/06/18 19:40 75 18 98 Nasal Cannula 2.0 28 01/06/18 17:23 121/59 01/06/18 16:43 79 20 100 Nasal Cannula 2.0 28 01/06/18 16:00 75 01/06/18 16:00 98.4 81 20 121/59 (79) 98 Intake and Output 01/06/18 01/07/18 19:00 07:00 Intake Total 480 ml 100 ml Output Total 650 ml Balance -170 ml 100 ml Intake Oral 480 ml 100 ml Output Urine Total 650 ml # Voids 3 2D Echo: LVEF 60%, Mild MR,RVSP 37 mmHg,Grade II LV diastolic dysfxn (pseudo- normal) Laboratory Tests Test 01/07/18 06:53 01/07/18 10:45 Sodium Level 135 MMOL/L (136-145) L Potassium Level 5.8 MMOL/L (3.5-5.1) H 5.1 MMOL/L (3.5-5.1) Chloride Level 100 MMOL/L (98-107) Carbon Dioxide Level 27 MMOL/L (21-32) Anion Gap 8 mmol/L (5-15) Blood Urea Nitrogen 16 mg/dL (7-18) Creatinine 0.9 MG/DL (0.55-1.30) Estimat Glomerular Filtration Rate mL/min (>60) Glucose Level 371 MG/DL (74-106) H Calcium Level 10.9 MG/DL (8.5-10.1) H Magnesium Level 1.9 MG/DL (1.8-2.4) Pro-B-Type Natriuretic Peptide 250 pg/mL (0-125) H Microbiology Date/Time Source Procedure Growth Status 01/05/18 12:30 Blood Blood Culture - Preliminary NO GROWTH AFTER 24 HOURS Resulted 01/05/18 12:15 Blood Blood Culture - Preliminary NO GROWTH AFTER 24 HOURS Resulted 01/05/18 13:02 Nasal Nares MRSA Culture - Final NO METHICILLIN RESISTANT STAPH AUREUS... Complete 01/05/18 13:02 Rectum VRE Culture - Final NO VANCOMYCIN RESISTANT ENTEROCOCCUS ... Complete 01/05/18 13:02 Rectum - Final NO CARBAPENEM-RESISTANT ENTEROBACTERI... Complete Objective HEENT: atraumatic, normocephalic, PERRLA, EOMI Neck: JVP less than 5 cm, no carotid bruit. Respiratory: Diminished BS both lungs Cardiovascular: regular rate, rhythm, tachycardic, distant S1S2, no murmurs, gallops or rubs. Gastrointestinal: normal bowel sounds, non tender, soft, no guarding, no hernia Musculoskeletal: no edema, clubbing or cyanosis. Iggy Holcomb MD Jan 07, 2018 15:41
[2018-01-07] MEDS: Azithromycin 500 MG in D5W 275 ML IV SCH (15:46)
[2018-01-07] MEDS ORDERED: dilTIAZem HCl 30mg tab ORAL SCH ×2 (16:00)
[2018-01-07 16:03] VITALS: BP 144/80
[2018-01-07] MEDS ORDERED: NovoLOG Insulin Flexpen SUBQ SCH (16:50)
[2018-01-07] MEDS ORDERED: Nitroglycerin Subl 0.4mg tab SL PRN (16:55)
[2018-01-07] MEDS: Norco 5mg/325mg tab ORAL PRN (17:41)
[2018-01-07] MEDS ORDERED: TraZODone 100mg tab ORAL PRN (18:00)
--- NOTE | 2018-01-07 19:21 | General Progress Note ---
Assessment/Plan Status: stable Assessment/Plan anxiety d/o Ativan prn trazodone BuSpar provided ro/st Subjective Neurologic/Psychiatric: Reports: anxiety, depressed Allergies: Coded Allergies: MORPHINE (Verified Allergy, Mild, Rash, 08/23/12) SHELLFISH DERIVED (Unverified Allergy, Unknown, 01/01/15) ZOLPIDEM TARTRATE (Verified Adverse Reaction, Mild, Altered Mental Status , 11/09/12) severe confusion Subjective the pt was agitated today and was crying co pain. Objective Last 24 Hour Vital Signs Date Time Temp Pulse Resp B/P (MAP) Pulse Ox O2 Delivery O2 Flow Rate FiO2 01/07/18 18:11 98.1 01/07/18 17:27 144/80 01/07/18 16:03 98.1 108 21 144/80 (101) 99 01/07/18 15:19 Nasal Cannula 2.0 28 01/07/18 15:19 Nasal Cannula 2.0 28 01/07/18 12:00 103 01/07/18 12:00 97.2 107 21 145/84 (104) 95 01/07/18 11:02 94 20 99 Nasal Cannula 2.0 28 01/07/18 10:56 98 18 98 Nasal Cannula 2.0 28 01/07/18 10:21 155/87 01/07/18 09:44 107 155/87 01/07/18 09:00 Nasal Cannula 2.0 01/07/18 08:11 158/88 01/07/18 08:02 159/88 01/07/18 08:00 97.0 107 20 158/87 (110) 95 01/07/18 08:00 114 01/07/18 07:52 166/89 01/07/18 07:20 96 18 100 Nasal Cannula 2.0 01/07/18 07:10 99 20 100 Nasal Cannula 2.0 28 01/07/18 04:00 88 01/07/18 04:00 97.2 88 21 127/74 (91) 95 01/07/18 03:25 83 18 99 Nasal Cannula 2.0 28 01/07/18 03:15 84 18 97 Nasal Cannula 2.0 28 01/07/18 00:00 98.5 82 20 139/68 (91) 94 01/07/18 00:00 79 11/3/18 00:00 83 01/06/18 23:42 80 18 99 Nasal Cannula 2.0 28 01/06/18 23:32 80 18 95 Nasal Cannula 2.0 28 01/06/18 21:00 Nasal Cannula 2.0 01/06/18 20:55 79 121/59 01/06/18 20:00 98.3 79 22 122/64 (83) 93 01/06/18 20:00 79 01/06/18 19:50 77 18 99 Nasal Cannula 2.0 28 01/06/18 19:40 75 18 98 Nasal Cannula 2.0 28 Intake and Output 01/06/18 01/07/18 19:00 07:00 Intake Total 480 ml 100 ml Output Total 650 ml Balance -170 ml 100 ml Intake Oral 480 ml 100 ml Output Urine Total 650 ml # Voids 3 Laboratory Tests 01/07/18 06:53: Sodium Level 135L, Potassium Level 5.8H, Chloride Level 100, Carbon Dioxide Level 27, Anion Gap 8, Blood Urea Nitrogen 16, Creatinine 0.9, Estimat Glomerular Filtration Rate , Glucose Level 371H, Calcium Level 10.9H, Magnesium Level 1.9, Pro-B-Type Natriuretic Peptide 250H 01/07/18 10:45: Potassium Level 5.1 Height (Feet): 5 Height (Inches): 2.00 Weight (Pounds): 192 General Appearance: alert, severe distress, agitated Neurologic: oriented x 3, responsive, depressed affect Angela Nicole MD Jan 07, 2018 19:21
[2018-01-07 19:46] VITALS: BP 138/71
[2018-01-07] MEDS ORDERED: Atorvastatin 20mg tab ORAL SCH (21:00)
[2018-01-07] MEDS ORDERED: Levemir Flexpen SUBQ SCH (21:00)
[2018-01-07] MEDS ORDERED: Solu-MEDROL 40mg Inj IVP SCH (21:00)
[2018-01-07] MEDS: Atorvastatin 20mg tab ORAL SCH (21:20)
[2018-01-07] MEDS: dilTIAZem HCl 60mg tab ORAL SCH (21:21)
[2018-01-07] MEDS: Levemir Flexpen SUBQ SCH (21:21)
[2018-01-08] VITALS (8 sets, daily range): BP systolic 101–148; BP diastolic 59–84
[2018-01-08] MEDS: Albuterol/Ipratropium 3ml neb HHN SCH ×6 (01:27→23:09)
--- NOTE | 2018-01-08 04:30 | Progress Note ---
DATE: 01/07/2018 NOTE: BAD AUDIO SUBJECTIVE: This is an elderly female, currently complaining of left shoulder pain, intractable pain, and also . OBJECTIVE: GENERAL: The patient is currently alert, awake, and in mild to moderate short of breath, and sore throat. VITAL SIGNS: Blood pressure is 150/70, pulse 80, and respirations 18 . CHEST: Bilateral few crackles and wheezing. CARDIOVASCULAR: rhythm. No gallop. No murmur. ABDOMEN: Soft. Positive bowel sounds. EXTREMITIES: No swelling. GENITOURINARY: Deferred. LABORATORY DATA: Not done. ASSESSMENT: 1. Acute COPD exacerbation. 2. Sore throat. 3. Intractable pain on the left shoulder. 4. Bursitis. 5. Degenerative arthritis. 6. Chest pain. PLAN: We will add . We will decrease Solu-Medrol. Increase Levemir. Continue bronchodilator. I will start NovoLog 8 units t.i.d. if her sugar is high and PT/OT. Transferred to . Clemente Boland M.D. DR: ANAM JOB#: [id number] CC:
[2018-01-08] MEDS: dilTIAZem HCl 60mg tab ORAL SCH ×3 (05:35→21:30)
[2018-01-08] MEDS: NovoLOG Insulin Flexpen SUBQ SCH ×7 (06:24→21:58)
[2018-01-08] MEDS: Solu-MEDROL 40mg Inj IVP SCH ×2 (08:46→21:58)
[2018-01-08] MEDS: Aspirin Baby 81mg ORAL SCH (08:46)
[2018-01-08] MEDS: BusPIRone 10mg Tab ORAL SCH ×3 (08:46→17:24)
[2018-01-08] MEDS: Memantine 10mg tab ORAL SCH ×2 (08:47→17:23)
[2018-01-08] MEDS: Docusate 250mg cap ORAL SCH (08:47)
[2018-01-08] MEDS: Losartan 50mg tab ORAL SCH ×2 (08:47→17:23)
[2018-01-08] MEDS: Meloxicam 15 MG TAB ORAL SCH (08:47)
[2018-01-08] MEDS: Norco 5mg/325mg tab ORAL PRN ×2 (11:17→21:31)
[2018-01-08] MEDS: Azithromycin 500 MG in D5W 275 ML IV SCH (14:11)
[2018-01-08] MEDS: LORazepam 1mg tab ORAL PRN ×2 (14:18→20:40)
[2018-01-08] MEDS ORDERED: Azithromycin 250mg tab ORAL SCH (15:30)
[2018-01-08] MEDS: Atorvastatin 20mg tab ORAL SCH (20:40)
[2018-01-08] MEDS: Levemir Flexpen SUBQ SCH (21:59)
--- NOTE | 2018-01-08 23:24 | Cardiology Progress Note ---
Assessment/Plan Assessment/Plan 1. Dyspnea likely acute exacerbation of COPD, continue SoluMedrol, breathing treatment, pulmonary toilet. 2D echo reveals acute on chronic diastolic CHF with normal LVEF, Off lasix foe now. 2. Chest pain, likely due to underlying pulmonary pathology, likely bronchoconstriction, no wall motion abnormalities per echo, AMI is ruled out, ECG reveals no ischemic changes. 3. Acute on chronic diastolic CHF. 4. HTN, increase Diltiazem to 60mg tid. Subjective Subjective Sinus tachycardia at 103. Admits to having less SOB. Objective Last 24 Hour Vital Signs Date Time Temp Pulse Resp B/P (MAP) Pulse Ox O2 Delivery O2 Flow Rate FiO2 01/08/18 23:10 96 20 96 Nasal Cannula 1.0 01/08/18 21:30 101 148/65 01/08/18 21:00 Nasal Cannula 2.0 01/08/18 20:00 101 18 99 Nasal Cannula 2.0 28 01/08/18 20:00 98.0 98 19 148/65 (92) 100 01/08/18 19:59 Nasal Cannula 2.0 28 01/08/18 19:58 98 Nasal Cannula 2.0 28 01/08/18 19:50 98 22 98 Nasal Cannula 2.0 28 01/08/18 17:23 133/75 01/08/18 17:21 106 133/75 (94) 01/08/18 15:56 98.1 88 18 141/65 (90) 97 01/08/18 14:13 88 18 97 Nasal Cannula 2.0 28 01/08/18 14:12 77 142/71 (94) 01/08/18 14:11 77 142/71 01/08/18 14:03 88 22 97 Nasal Cannula 2.0 28 01/08/18 12:00 97.5 70 24 123/70 (87) 98 70 01/08/18 11:57 Nasal Cannula 01/08/18 11:55 Nasal Cannula 01/08/18 09:00 Nasal Cannula 2.0 01/08/18 08:47 129/69 01/08/18 08:30 84 20 98 Nasal Cannula 2.0 28 01/08/18 08:20 89 18 96 Nasal Cannula 2.0 28 01/08/18 08:10 86 20 95 Nasal Cannula 2.0 28 01/08/18 08:09 Nasal Cannula 1.0 24 01/08/18 08:00 98.6 91 19 129/69 (89) 100 01/08/18 07:10 95 Nasal Cannula 1.0 24 01/08/18 05:35 70 146/84 01/08/18 04:00 97.9 70 19 146/84 (104) 97 01/08/18 03:12 92 20 97 Nasal Cannula 2.0 28 01/08/18 03:11 91 18 94 Nasal Cannula 2.0 28 01/08/18 00:00 99.3 89 19 101/59 (73) 95 01/07/18 23:42 96 20 100 Nasal Cannula 2.0 28 01/07/18 23:33 92 18 97 Nasal Cannula 2.0 28 Intake and Output 01/07/18 01/08/18 19:00 07:00 Intake Total 840 ml 240 ml Balance 840 ml 240 ml Intake Oral 840 ml 240 ml # Voids 2 3 Objective HEENT: atraumatic, normocephalic, PERRLA, EOMI Neck: JVP less than 5 cm, no carotid bruit. Respiratory: Diminished BS both lungs Cardiovascular: regular rate, rhythm, tachycardic, distant S1S2, no murmurs, gallops or rubs. Gastrointestinal: normal bowel sounds, non tender, soft, no guarding, no hernia Musculoskeletal: no edema, clubbing or cyanosis. Iggy Holcomb MD Jan 08, 2018 23:24
[2018-01-09] VITALS: BP 139/65
[2018-01-09] MEDS: Norco 5mg/325mg tab ORAL PRN ×2 (02:30→13:31)
--- NOTE | 2018-01-09 02:30 | Progress Note ---
DATE: 01/08/2018 SUBJECTIVE: This is an elderly female, who is still short of breath. Sugar is high. The patient has no chest pain. She is having shoulder pain and back pain. PAST MEDICAL HISTORY: As listed in H and P. PHYSICAL EXAMINATION: GENERAL: This is an elderly female. VITAL SIGNS: Blood pressure is 130/70, pulse 60, and respirations 18. No fever. HEENT: NAD. CHEST: Bilateral expiratory wheezing. CARDIOVASCULAR: Regular rhythm. No gallop. No murmur. ABDOMEN: Soft. Positive bowel sounds. EXTREMITIES: Mild tenderness on the left shoulder. ASSESSMENT: 1. Acute COPD. 2. Acute coronary syndrome. 3. Hypertension. 4. Diabetes, uncontrolled. 5. Degenerative arthritis. PLAN: 1. We will admit her on medical floor. 2. We will start PT and OT as well as started her on steroids. 3. Continue antibiotics. 4. Continue oxygen and bronchodilator treatment. Clemente Boland M.D. DR: ART JOB#: [id number] CC:
[2018-01-09] MEDS: Albuterol/Ipratropium 3ml neb HHN SCH ×4 (03:00→15:08)
[2018-01-09 04:00] VITALS: BP 149/91
[2018-01-09] MEDS: dilTIAZem HCl 60mg tab ORAL SCH ×2 (06:18→14:02)
[2018-01-09] MEDS: NovoLOG Insulin Flexpen SUBQ SCH ×7 (06:22→20:05)
[2018-01-09 08:00] VITALS: BP 141/71
[2018-01-09] MEDS: Aspirin Baby 81mg ORAL SCH (08:57)
[2018-01-09] MEDS: Losartan 50mg tab ORAL SCH ×2 (08:57→17:06)
[2018-01-09] MEDS: Memantine 10mg tab ORAL SCH ×2 (08:57→17:05)
[2018-01-09] MEDS: Docusate 250mg cap ORAL SCH (08:57)
[2018-01-09] MEDS: Meloxicam 15 MG TAB ORAL SCH (08:57)
[2018-01-09] MEDS: BusPIRone 10mg Tab ORAL SCH ×3 (08:58→17:06)
[2018-01-09] MEDS: Solu-MEDROL 40mg Inj IVP SCH ×2 (08:58→20:03)
[2018-01-09] MEDS ORDERED: Azithromycin 250mg tab ORAL SCH (09:00)
[2018-01-09] MEDS ORDERED: Albuterol/Ipratropium 3ml neb ONE (09:38)
--- NOTE | 2018-01-09 09:42 | Cardiology Report ---
APPROVED REPORT EXAM: Two-dimensional and M-mode echocardiogram with Doppler and color Doppler. INDICATION Shortness of breath M-Mode DIMENSIONS IVSd1.0 (0.7-1.1cm)Left Atrium (MM)3.4 (1.6-4.0cm) LVDd4.1 (3.5-5.6cm)Aortic Root2.8 (2.0-3.7cm) PWd1.0 (0.7-1.1cm)Aortic Cusp Exc.2.0 (1.5-2.0cm) LVDs1.9 (2.5-4.0cm) PWs1.6 cm Normal left ventricular chamber size, systolic function and wall motion. Left ventricular ejection fraction estimated to be 60 %. No evidence of left ventricular hypertrophy. Anterior Echo-free space, may be due to pericardial fat or effusion. All other cardiac chamber sizes are within normal limits. Focal aortic valve sclerosis with adequate cusp excursion. Thickened mitral valve leaflets with normal excursion. Mild mitral annulus and aortic root calcification. Pulmonic valve not well visualized. Normal tricuspid valve structure. IVC measures at 2.0 cm with physiological collapse, suggestive of increased RA pressure. A color flow and spectral Doppler study was performed and revealed: No aortic insufficiency. Mild mitral regurgitation. Mitral inflow velocities indicates possible pseudo normalization pattern implying significant left ventricular diastolic dysfunction (Grade II). Trace tricuspid regurgitation. Tricuspid systolic velocities suggests peak right ventricular systolic pressure of 37 mmHg, consistent with mild pulmonary hypertension. No pulmonic regurgitation present.
[2018-01-09 12:00] VITALS: BP 147/71
[2018-01-09 16:00] VITALS: BP 155/71
[2018-01-09] MEDS ORDERED: Lactulose 20gm/30ml UDC ORAL SCH (17:36)
[2018-01-09] MEDS: Atorvastatin 20mg tab ORAL SCH (20:02)
[2018-01-09 20:03] VITALS: BP 156/78
[2018-01-09] MEDS: Levemir Flexpen SUBQ SCH (20:06)
--- NOTE | 2018-01-09 23:10 | General Progress Note ---
Assessment/Plan Assessment/Plan anxiety d/o Ativan prn trazodone BuSpar provided ro/st Subjective Date patient seen: Jan 09, 2018 Neurologic/Psychiatric: Reports: anxiety, depressed, emotional problems Allergies: Coded Allergies: MORPHINE (Verified Allergy, Mild, Rash, 08/23/12) SHELLFISH DERIVED (Unverified Allergy, Unknown, 01/01/15) ZOLPIDEM TARTRATE (Verified Adverse Reaction, Mild, Altered Mental Status , 11/09/12) severe confusion Subjective the pt was agitated and was crying Objective Last 24 Hour Vital Signs Date Time Temp Pulse Resp B/P (MAP) Pulse Ox O2 Delivery O2 Flow Rate FiO2 01/09/18 20:03 156/78 01/09/18 17:06 155/71 01/09/18 16:00 97.9 92 21 155/71 (99) 97 01/09/18 15:18 91 18 97 Nasal Cannula 1.0 01/09/18 15:08 98 20 96 Nasal Cannula 1.0 01/09/18 14:02 101 147/71 01/09/18 12:00 97.5 101 19 147/71 (96) 97 01/09/18 11:59 Nasal Cannula 1.0 01/09/18 11:59 Nasal Cannula 1.0 01/09/18 09:55 99 20 94 Nasal Cannula 1.0 01/09/18 09:45 98 25 100 Nasal Cannula 1.0 01/09/18 09:45 Nasal Cannula 1.0 24 01/09/18 09:45 100 Nasal Cannula 1.0 24 01/09/18 09:00 Nasal Cannula 2.0 01/09/18 08:57 141/71 01/09/18 08:00 97.4 110 19 141/71 (94) 97 01/09/18 06:18 95 159/94 01/09/18 04:00 99.2 97 19 149/91 (110) 97 01/09/18 03:42 Nasal Cannula 01/09/18 03:42 Nasal Cannula 01/09/18 00:00 98.1 84 19 139/65 (89) 100 01/08/18 23:21 94 20 98 Nasal Cannula 1.0 01/08/18 23:10 96 20 96 Nasal Cannula 1.0 Intake and Output 01/08/18 01/09/18 19:00 07:00 Intake Total 1000 ml Output Total 1350 ml Balance 1000 ml -1350 ml Other 1000 ml Output Urine Total 1350 ml # Voids 4 # Bowel Movements 1 Height (Feet): 5 Height (Inches): 2.00 Weight (Pounds): 185 General Appearance: no apparent distress, alert Neurologic: oriented x 3, responsive, depressed affect Angela Nicole MD Jan 09, 2018 23:10
--- NOTE | 2018-01-09 23:11 | General Progress Note ---
Assessment/Plan Status: stable, progressing Assessment/Plan anxiety d/o Ativan prn trazodone BuSpar provided ro/st Subjective Date patient seen: Jan 08, 2018 Neurologic/Psychiatric: Reports: anxiety, depressed, emotional problems Allergies: Coded Allergies: MORPHINE (Verified Allergy, Mild, Rash, 08/23/12) SHELLFISH DERIVED (Unverified Allergy, Unknown, 01/01/15) ZOLPIDEM TARTRATE (Verified Adverse Reaction, Mild, Altered Mental Status , 11/09/12) severe confusion Objective Last 24 Hour Vital Signs Date Time Temp Pulse Resp B/P (MAP) Pulse Ox O2 Delivery O2 Flow Rate FiO2 01/09/18 20:03 156/78 01/09/18 17:06 155/71 01/09/18 16:00 97.9 92 21 155/71 (99) 97 01/09/18 15:18 91 18 97 Nasal Cannula 1.0 01/09/18 15:08 98 20 96 Nasal Cannula 1.0 01/09/18 14:02 101 147/71 01/09/18 12:00 97.5 101 19 147/71 (96) 97 01/09/18 11:59 Nasal Cannula 1.0 01/09/18 11:59 Nasal Cannula 1.0 01/09/18 09:55 99 20 94 Nasal Cannula 1.0 01/09/18 09:45 98 25 100 Nasal Cannula 1.0 01/09/18 09:45 Nasal Cannula 1.0 24 01/09/18 09:45 100 Nasal Cannula 1.0 24 01/09/18 09:00 Nasal Cannula 2.0 01/09/18 08:57 141/71 01/09/18 08:00 97.4 110 19 141/71 (94) 97 01/09/18 06:18 95 159/94 01/09/18 04:00 99.2 97 19 149/91 (110) 97 01/09/18 03:42 Nasal Cannula 01/09/18 03:42 Nasal Cannula 01/09/18 00:00 98.1 84 19 139/65 (89) 100 01/08/18 23:21 94 20 98 Nasal Cannula 1.0 Intake and Output 01/08/18 01/09/18 19:00 07:00 Intake Total 1000 ml Output Total 1350 ml Balance 1000 ml -1350 ml Other 1000 ml Output Urine Total 1350 ml # Voids 4 # Bowel Movements 1 Height (Feet): 5 Height (Inches): 2.00 Weight (Pounds): 185 General Appearance: no apparent distress, alert Neurologic: oriented x 3, responsive, normal mood/affect Angela Nicole MD Jan 09, 2018 23:11
--- NOTE | 2018-01-10 11:20 | Discharge Summary ---
Discharge Summary Discharge Summary _ DATE OF ADMISSION: 01/05/2018 DATE OF DISCHARGE: 01/09/2018 REASON FOR ADMISSION: 72 years old female with past medical history of congestive heart failure, coronary artery disease, myocardial infarction, CVA, COPD, diabetes mellitus, schizophrenia, depression, anxiety, presented to emergency department with complain of chest pain. Upon evaluation troponin was negative. EKG revealed normal sinus rhythm, no acute ischemic changes. Chest x-ray revealed no acute cardiopulmonary pathology. Urinalysis was negative for UTI. Pro BNP 361 , glucose 264 . Patient admitted with diagnoses of chest pain, rule out acute coronary syndrome , COPD with exacerbation. CONSULTANTS: historic clothing and costume maker Dr. Holcomb psychiatrist [facility]: Patient initially admitted to telemetry floor. Cardiology consult was requested. Serial troponin were negative. EKG revealed no acute ischemic changes. Patient was ruled out for acute myocardial infarction. Echocardiogram revealed preserved ejection fraction of 60% and no evidence of wall motion abnormalities. Right ventricular systolic pressure of 37 consistent with mild pulmonary hypertension. Supplemental oxygen provided as needed to keep pulse ox above 92%. Pulmonary toilet provided with bronchodilator. Patient started pn IV steroids with gradual tapering down. Patient was on empiric antibiotics. Antitussive provided as needed. Diuresis provided with close monitoring of volumes and cardiorenal parameters. ProBNP trended down. Blood culture were negative. Home medications were resumed, including antiplatelet therapy /aspirin and statin. Blood pressure was managed with angiotensin receptor radha and nifedipine. Dose of nifedipine was uptitrated by historic clothing and costume maker to keep blood pressure under control. Per cardiology, chest pain was likely due to underlying pulmonary pathology , probably bronchoconstriction. Blood sugar was managed with long-acting Levemir and sliding scale of short acting insulin. Patient will need further optimization of anti-glycemic regimen as outpatient. Uncontrolled diabetes also possibly due to steroids, steroids stopped prior to discharge. Other home medications resumed. GI prophylaxis provided. Supportive care provided. Psychiatrist closely followed . Psychiatric medication regimen optimized. Reality orientation supportive therapy provided. Patient clinically stabilized and was ready for discharge back to [facility] facility for continuation of care. FINAL DIAGNOSES: COPD exacerbation Chest pain likely due to the underlying pulmonary pathology , probably bronchoconstriction Acute on chronic diastolic congestive heart failure Hypertension Diabetes mellitus, uncontrolled Anxiety disorder DISCHARGE MEDICATIONS: See Medication Reconciliation list. DISCHARGE INSTRUCTIONS: Patient was discharged to the [facility] facility.Follow up with medical doctor at the facility. I have been assigned to dictate discharge summary for this account. I was not involved in the patient's management. Lola Armstrong NP Jan 10, 2018 11:20
--- NOTE | 2018-01-10 20:30 | Discharge Summary ---
DATE OF ADMISSION: 01/05/2018 DATE OF DISCHARGE: 01/09/2018 HOSPITAL COURSE: This is an elderly female, currently doing fine. Came to the hospital for acute chronic obstructive pulmonary disease and chest pain. The patient . Cardiology consult was obtained. The patient also has sore throat, treated with Zithromax. The patient is clinically doing better. Short of breath is improved. No chest pain. DISCHARGE DIAGNOSES: 1. Acute chronic obstructive pulmonary disease. 2. Atypical chest pain. 3. Diabetes, poorly controlled. 4. Hypertension. PLAN: 1. Discontinue steroids. 2. Discontinue antibiotics. 3. Bronchodilator treatment. 4. Discharge plan to SNF. Clemente Bolnad M.D. DR: CORAL JOB#: [id number] CC:
== END 2018-01-09 20:32 | DRG 190 ==
LOC: EDBD 11:40 → EDSEX 11:40 → EMR 12:25 → 2E 12:30 → ENRESERV 13:01 → EDBEDREQ 13:07 → 2E 01-07 12:19 → 4E 01-07 15:17
DX: J44.1 Chronic obstructive pulmonary disease with (acute) exacerbation (principal); I50.33 Acute on chronic diastolic (congestive) heart failure; E87.1 Hypo-osmolality and hyponatremia; I11.0 Hypertensive heart disease with heart failure; R07.89 Other chest pain; E11.65 Type 2 diabetes mellitus with hyperglycemia; F41.9 Anxiety disorder, unspecified; Z88.8 Allergy status to other drugs, medicaments and biological substances; Z88.6 Allergy status to analgesic agent; Z91.013 Allergy to seafood; Z79.4 Long term (current) use of insulin; Z66 Do not resuscitate; M79.7 Fibromyalgia; G47.00 Insomnia, unspecified; J02.9 Acute pharyngitis, unspecified; M71.9 Bursopathy, unspecified; M19.90 Unspecified osteoarthritis, unspecified site; F20.9 Schizophrenia, unspecified
CPT/HCPCS: 36415; 71045; 80048; 80053; 81003; 82550; 82553; 82962; 83605; 83690; 83735; 83880; 84132; 84484; 85025; 87040; 87081; 93005; 93306; 94640; 94664; 94760; 96374; 96375; 99285; J1815; J7620; S5561

== ENCOUNTER 2019-08-30 14:31 | Inpatient (IN) | payer MEDICARE, OTHER ==
[~2019-08-30] VITALS: Ht 161.3 cm; Wt 75.4 kg
--- NOTE | 2019-08-30 00:30 | NUR ---
NURSE NOTES: Received patient and report from Linda ALEX. Pt was transferred to ICU from [facility], goal to keep HR<100. Afib on library monitor. VS stable. Pt verbal but confused at times. PT has no IV peripherally will try to reinsert. A and O x 3.Pt has times of confusion and forgetfulness. Pt voids and PO intake. HOB elevated. Bed locked in lowest position. Call light within reach. Will continue to monitor Addendum: 08/31/19 at 0632 by DIPESH JEFFRIES RN RN ----please disregard this note - wrong date. Thank you.
[~2019-08-30 14:31] MED LIST changes: +ISORDIL30 MG GT; +LIPITOR20 MG ORAL; +MELATONIN3 MG ORAL; +METOPROLOL SUCC25 MG ORAL; +NAMENDA10 MG ORAL; +SOLARAZE100 GM TP
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
[2019-08-30 14:47] VITALS: BP 151/75
--- NOTE | 2019-08-30 14:47 | NUR ---
ED Nurse Note: Patient walked in to ED c/o SOB x2 days. Pt was seen at DR. Boland's office earlier and was told to go to the ER for further evaluation. Pt has hx of afib and COPD. Pt is tachycardic, HR 138. Pt AAOx4, verbally responsive. Pt placed on electronic device monitor. ERMD at bedside.
--- NOTE | 2019-08-30 15:09 | NUR ---
ED Nurse Note: called lab for blood draw.
[2019-08-30] MEDS ORDERED: Aspirin Baby 81mg ORAL ONE (15:15)
[2019-08-30] MEDS ORDERED: dilTIAZem HCl 25mg/5ml Inj IVP ONE ×2 (15:15→22:15)
--- NOTE | 2019-08-30 15:28 | NUR ---
ED Nurse Note: IV line established by ERMD. Blood specimen collected and sent to lab.
--- NOTE | 2019-08-30 15:37 | Diagnostic Imaging Report ---
Procedure: XRAY Chest 1v Reason for study: Reason For Exam: SOB Comparison films: 03/22/2019. FINDINGS: A single one view chest is obtained. Vascularity is normal. The lung pedro are clear bilaterally. Cardiac and mediastinal silhouette are within normal limits. CP angles are sharp. The bony thorax appear unremarkable. IMPRESSION: NO ACUTE CARDIOPULMONARY DISEASE.
--- NOTE | 2019-08-30 15:40 | NUR ---
ED Nurse Note: Urine specimen collected and set to lab.
[2019-08-30 15:44] LABS: EOSINOPHILS % (AUTO) 0.6 % (0.0-3.0); HEMOGLOBIN 13.6 G/DL (12.0-16.0); LYMPHOCYTES % (AUTO) 18.4 % (20.0-45.0); MEAN CORPUSCULAR VOLUME 80 FL (80-99); MONOCYTES % (AUTO) 7.9 % (1.0-10.0); NEUTROPHILS % (AUTO) 72.2 % (45.0-75.0); PLATELET COUNT 349 K/UL (150-450); RED BLOOD COUNT 5.14 M/UL (4.20-5.40); WHITE BLOOD COUNT 9.5 K/UL (4.8-10.8)
[2019-08-30 15:53] LABS: BILIRUBIN, URINE NEGATIVE (NEGATIVE); COLOR,URINE PALE YELLOW; GLUCOSE, URINE (UA) NEGATIVE (NEGATIVE); KETONES,URINE 2+ (NEGATIVE); LEUKOCYTE ESTERASE ,URINE 2+ (NEGATIVE); NITRITE,URINE NEGATIVE (NEGATIVE); PH,URINE 5 (4.5-8.0); PROTEIN,URINE 1+ (NEGATIVE); UROBILINOGEN,URINE NORMAL MG/DL (0.0-1.0)
[2019-08-30 15:55] LABS: INR 1.1 (0.9-1.1)
[2019-08-30 15:56] LABS: APPEARANCE,URINE CLEAR
[2019-08-30 15:58] LABS: ANION GAP 12 mmol/L (5-15); BLOOD UREA NITROGEN 4 mg/dL (7-18); CARBON DIOXIDE 25 MMOL/L (21-32); CHLORIDE 100 MMOL/L (98-107); CREATININE 0.8 MG/DL (0.55-1.30); POTASSIUM 3.4 MMOL/L (3.5-5.1); SODIUM 136 MMOL/L (136-145)
[2019-08-30] MEDS ORDERED: dilTIAZem HCl 60mg tab ORAL ONE (16:00)
[2019-08-30 16:10] LABS: ALANINE AMINOTRANSFERASE 15 U/L (12-78); ALBUMIN 4.1 G/DL (3.4-5.0); ALBUMIN/GLOBULIN RATIO 1.2 (1.0-2.7); ALKALINE PHOSPHATASE 91 U/L (46-116); ASPARTATE AMINO TRANSFERASE 12 U/L (15-37); BILIRUBIN,TOTAL 0.3 MG/DL (0.2-1.0)
[2019-08-30 16:57] VITALS: BP 128/58
--- NOTE | 2019-08-30 17:55 | NUR ---
ED Nurse Note: Report given to Marisel RN.
[2019-08-30 18:20] VITALS: BP 115/76
--- NOTE | 2019-08-30 18:20 | NUR ---
TRANSFER TO FLOOR: Patient transferred to Telemetry unit. Report given to Marisel ALEX. Pt AAOx4 but forgetful. Breathing even and unlabored, on room air. Afebrile. IV line on left EJ 18g patent and intact. Med recon done. N skin issues. Ambulatory. All belongings sent with the patient.
--- NOTE | 2019-08-30 18:35 | NUR ---
NURSE NOTES: Received patient from ER, report given by Raudel ALEX. IV line on left EJ g20 intact. No skin issues noted. Belongings accounted for. Oriented to room and call light. A and O x 4. Noted with some restlessness. Verbalized pain on lower back 10/14. HOB elevated. Bed locked in lowest position. Call light within reach. Will endorse to next shift. Addendum: 08/30/19 at 1904 by Marisel Gay RN VS taken and recorded: 115/61, 99% O2 on room air, 97 ND, 20 RR, 97.7F
--- NOTE | 2019-08-30 19:29 | NUR ---
HAND-OFF: Report given to Selam ALEX.
--- NOTE | 2019-08-30 19:35 | NUR ---
NURSE NOTES: Received patient from Marisel ALEX. Pt discontinued her IV EJ, has no IV will reinsert. Oriented to room and call light. A and O x 3 unable to identify specific year, knows name, , where she is at [facility]. Pt has times of confusion and forgetfulness, unable to provide current meds. willc all her daughter for more info. She seems to think she has been at the hospital for two weeks, Pt is very anxious, restless. HOB elevated. Bed locked in lowest position. Call light within reach. Pt here for rapid afib, showing afib on monitor HR 115. will continue to monitor
[2019-08-30 20:00] VITALS: BP 150/90
--- NOTE | 2019-08-30 22:00 | NUR ---
NURSE NOTES: PT hr 110. Pt continues to be agitated, asking for her keys. I left a voicemail for the daughter to ask about daily medications and verify. Received orders from Dr Boland to continue home meds. Must clarify regarding losartan as pt will be getting metoprolol as well. Tried to check the parking lot to see if pt's car is there- she said it is a white chevrolet. There is no car like that in parking lot, ED notes stated pt went to emergency room from Dr Boland's office. It is unknown as to whether pt was driven to ED or drove herself but there are no keys in the belongings list. Pt has some dementia and forgetfulness, able to state name, and location at [facility] but unable to tell the year- it is "1999 something" BG is 149
--- NOTE | 2019-08-30 22:20 | NUR ---
NURSE NOTES: Called Dr Boland as pt has rapid afib heart rate up to 150 bpm.
[2019-08-30] MEDS ORDERED: Albuterol/Ipratropium 3ml neb HHN PRN (22:30)
[2019-08-30] MEDS ORDERED: traMADol 50mg tab ORAL PRN (23:00)
[2019-08-30 23:20] VITALS: BP 148/88
[2019-08-30] MEDS ORDERED: BusPIRone 5mg Tab ORAL SCH (23:20)
[2019-08-30] MEDS ORDERED: TraZODone 100mg tab ORAL ONE (23:30)
--- NOTE | 2019-08-30 23:45 | NUR ---
NURSE NOTES: Called Dr Girard to receive orders rapd afib with RVR heart rate at 160 bpm Received order to transfer to ICU now to start on a cardizem drip 10 mg/h titrate up 15 mg/h to keep heart rate less than 100 bpm.
[2019-08-31] VITALS (19 sets, daily range): BP systolic 81–128; BP diastolic 45–80
[2019-08-31] MEDS ORDERED: dilTIAZem Premix 125mg/125ml 125 ML IVPB SCH
[2019-08-31] MEDS: dilTIAZem Premix 125mg/125ml 125 ML IVPB SCH
--- NOTE | 2019-08-31 00:25 | NUR ---
INTER-FACILITY TRANSFER: Nurse Note - 2E to ICU Patient transferred to ICU per Dr Girard to be started on a bella drip. Report given to ABI Gurrola. Patient transferred with valuables and belongings verified upon transfer given to ABI Gurrola. Albuterol inhaler was found in belongings and sent to pharmacy. Family, daughter, Danielle (with whom she lives with) was notified of transfer via a voicemail, and told she was in room 246 F in ICU. Addendum: 08/31/19 at 0213 by Dai Estevez RN Padmini ruelas
--- NOTE | 2019-08-31 00:30 | NUR ---
NURSE NOTES: Received patient and report from Darlene ALEX. Pt was transferred to ICU from [facility] because of Cardizem drip, goal to keep HR<100. Afib on quality assurance monitor body. VS stable. HR 110. Pt verbalizes but confused at times. Note pt has no IV peripherally will try to reinsert. A and O x 3. Pt voids and PO intake. HOB elevated. Bed locked in lowest position. Call light within reach. Will continue to monitor
--- NOTE | 2019-08-31 01:00 | NUR ---
NURSE NOTES: Unable to start a peripheral line on the pt. Paged and inform Dr. Girard, waiting for call back. Pt's AFib on school lunch monitor. Hr 110-120, however at complete rest, her HR at 98-99. Pt denies any chest pain, SOB. Call light within. Will continue to monitor.
--- NOTE | 2019-08-31 01:15 | History and Physical Report ---
DATE OF ADMISSION: 08/30/2019 HISTORY OF PRESENT ILLNESS: This is a 73-year-old female who came to the emergency room from my office where she was found as AFib with rapid ventricular rate. The patient was also feeling weak and tired and tachycardia and hcer-ah-csbshqbr shortness of breath. The patient also has atypical chest pain intermittently all over the body. The patient is otherwise sitting alert and oriented x3. PAST MEDICAL HISTORY: Significant for AFib, hypertension, diabetes, COPD, degenerative arthritis, chronic back pain, and shoulder pain. MEDICATIONS: See the list. ALLERGIES: NKA. FAMILY HISTORY: Noncontributory. SOCIAL HISTORY: The patient lives at home with the family. She independently walks and does her own daily activities. OBJECTIVE: VITAL SIGNS: Blood pressure is 130/70, pulse 130, respirations 18 to 24, temperature is no fever. SKIN: Good skin turgor. HEENT: Mild JVD. CHEST: Bilateral decreased breath sounds. Scattered, some wheezing. CARDIOVASCULAR: Irregularly irregular rhythm. ABDOMEN: Soft. Positive bowel sounds. Nontender. EXTREMITIES: No edema. GENITOURINARY: Deferred. LABORATORY DATA: White counts are normal. BUN and creatinine is slightly high. Glucose is high. ASSESSMENT AND PLAN: 1. AFib with rapid ventricular rate. 2. COPD exacerbation. 3. CHF, acute diastolic failure. 4. Hypertension. 5. Diabetes. 6. Depression. 7. Degenerative arthritis. 8. Chronic pain on the shoulder as well as bilateral . PLAN: 1. We will admit her on telemetry bed. 2. Start anticoagulation, Lovenox. 3. Start metoprolol. 4. Also start digoxin and beta-radha. 5. Consider Cardiology and Pulmonary consult. 6. Also, add DuoNeb, oxygen, and bronchodilator treatments. Clemente Boland M.D. DR: CORAL JOB#: [id number] CC:
[2019-08-31] MEDS ORDERED: Albuterol/Ipratropium 3ml neb HHN PRN (02:30)
--- NOTE | 2019-08-31 03:00 | NUR ---
NURSE NOTES: Pt's sleeping in bed with eyes closed, HR 110, Afib on eap consultant. In no acute distress. Will continue to monitor.
[2019-08-31] MEDS ORDERED: traMADol 50mg tab ORAL PRN (05:00)
--- NOTE | 2019-08-31 05:00 | NUR ---
NURSE NOTES: Pt's resting, sleeping in bed, in no acute distress. VS stable. Will continue to monitor.
[2019-08-31] MEDS: NovoLOG Insulin Flexpen SUBQ SCH ×4 (06:15→20:41)
[2019-08-31] MEDS ORDERED: NovoLOG Insulin Flexpen SUBQ SCH (06:30)
--- NOTE | 2019-08-31 07:30 | NUR ---
HAND-OFF: Report given to ABI Rees.
--- NOTE | 2019-08-31 07:35 | NUR ---
NURSE NOTES: Report received from Galileo James RN.Pt awake,alert sitting up on bed, disoriented to some degree,but able to follow simple command,on RA, noted no resp distress,denies any c/o chest pain or discomfort,on AFIB on the monitor,,skin warm and dry,no IV access,pt is a hard stick,SR up x2 HOB elevated,bed lock in lowest position,will continue to access IV.
--- NOTE | 2019-08-31 08:14 | Consultation ---
DATE OF CONSULTATION: 08/31/2019 PULMONARY CONSULTATION CONSULTING PHYSICIAN: Fredi Aguilera MD. HISTORY OF PRESENT ILLNESS: This is a 73-year-old female with history of chronic atrial fibrillation, COPD, diabetes mellitus, asthma, previous CVA, CAD, GERD, and hypertension who came to the hospital with chest pain. She also reported chest pain. She was seen by doctor's office and advised to come to the emergency room. She reported feeling tired and weak. PAST MEDICAL HISTORY: As discussed above. PREVIOUS SURGERIES: Hysterectomy. HOME MEDICATIONS: Reviewed and reconciled in chart. ALLERGIES: To morphine and Ambien. REVIEW OF SYSTEMS: Denies any headaches, hematemesis, melena, hematochezia, night sweats, or weight loss. PHYSICAL EXAMINATION: GENERAL: Reveals a 73-year-old female. HEENT: Unremarkable. CHEST: Decreased breath sounds bilaterally. ABDOMEN: Soft. EXTREMITIES: There is no edema. VITAL SIGNS: Blood pressure is 150/70, heart rate 130, respirations are 20, she is afebrile, O2 saturation 98% on room air. LABORATORY DATA: Lab testing shows normal CBC and BMP. Glucose 226. Troponin negative. Coags negative. Urine tox positive for opiates. Urinalysis negative. X-ray chest shows clear lung pedro bilaterally. EKG shows atrial fibrillation. IMPRESSION: 1. Rapid AFib. 2. COPD. 3. Diabetes mellitus. 4. Hypertension. 5. CAD. 6. CVA. 7. GERD. DISCUSSION: Admit to ICU. Patient will require rate control. Currently on Cardizem drip. Continue medications. Consider anticoagulation. We will follow as flat bed operator. Fredi Aguilera M.D. DR: DANIELLE JOB#: [id number] CC:
[2019-08-31] MEDS ORDERED: Docusate 250mg cap ORAL SCH (09:00)
[2019-08-31] MEDS ORDERED: Enoxaparin 60mg Inj SUBQ SCH ×2 (09:00)
[2019-08-31] MEDS ORDERED: Enoxaparin 40mg Inj SUBQ SCH (09:00)
[2019-08-31] MEDS ORDERED: Aspirin Baby 81mg ORAL SCH (09:00)
[2019-08-31] MEDS ORDERED: Memantine 10mg tab ORAL SCH (09:00)
[2019-08-31] MEDS ORDERED: Losartan 50mg tab ORAL SCH (09:00)
[2019-08-31] MEDS: Aspirin Baby 81mg ORAL SCH (09:33)
[2019-08-31] MEDS: Memantine 10mg tab ORAL SCH ×2 (09:33→18:12)
[2019-08-31] MEDS: Docusate 250mg cap ORAL SCH (09:34)
[2019-08-31] MEDS: Losartan 50mg tab ORAL SCH ×2 (09:34→18:11)
--- NOTE | 2019-08-31 10:00 | NUR ---
NURSE NOTES: ICU nurse staff community health and ICU charge account authorizer tried to insert IV but unable to so.
--- NOTE | 2019-08-31 10:30 | NUR ---
NURSE NOTES: called Dr Boland,call returned informed re no IV access,that pt is a hard stick,PICC line ordered. .
[2019-08-31] MEDS ORDERED: Lidocaine 1% Plain 30 ml INJ PRN (10:50)
[2019-08-31] MEDS ORDERED: Heparin1,000 units/500ml Premix(Conc:2 units/ml) IV PRN (10:50)
--- NOTE | 2019-08-31 10:57 | NUR ---
PLASTERER ROUGH NOTE PT was transferred to ICU on 08/30/2019. Pt presents as A&O3x. [place] [facility] [place] [facility] [address] [facility] [address]. Her daughters and grandsons visit/stay w/ her almost every day. Thus, pt reports she is never alone at home. Pt has two adult daughters. Pt does not have POA.AD/POLST but expressed full code. Pt is ambulatory w/ cane or walker. Pt has both DMEs at home. Pt reports she receives excellent family support and assistance. PT denies substance abuse. Pt shares the primary contact/decision maker if she can't make one, will be her daughter, Danielle Whitfield [phone] and the secondary contact is another daughter, Robyn Mercedes [phone]. NO other concern/needs expressed by pt. Addendum: 08/31/19 at 1118 by INES LEGER PT also denies SI/HI.
--- NOTE | 2019-08-31 11:00 | NUR ---
NURSE NOTES: Dr Girard at bedside,informed re no IV access and Cardizem drip not started yet.,orders given and carried out.
--- NOTE | 2019-08-31 12:49 | Cardiac Electrophysiology PN ---
Subjective Subjective [id number] Objective Last 24 Hour Vital Signs Date Time Temp Pulse Resp B/P (MAP) Pulse Ox O2 Delivery O2 Flow Rate FiO2 08/31/19 12:00 Nasal Cannula 2.0 08/31/19 12:00 97.7 107 19 99/55 (70) 97 08/31/19 11:00 92 18 100 08/31/19 10:00 114 19 100 08/31/19 09:34 128/60 08/31/19 09:34 129 08/31/19 09:32 129 128/60 08/31/19 09:32 128/60 08/31/19 09:00 107 19 128/60 (82) 99 08/31/19 08:00 129 08/31/19 08:00 98.1 100 19 128/60 (82) 100 08/31/19 08:00 Room Air 08/31/19 08:00 Nasal Cannula 2.0 08/31/19 05:00 112 19 124/63 (83) 99 08/31/19 04:00 112 18 120/60 (80) 99 08/31/19 04:00 Nasal Cannula 2.0 08/31/19 04:00 119 08/31/19 03:00 117 18 115/70 (85) 99 08/31/19 02:00 133 24 114/80 (91) 99 08/31/19 02:00 Room Air 08/31/19 01:00 98.0 115 20 110/60 (77) 99 08/31/19 00:31 113 19 108/57 (74) 99 08/31/19 00:30 Nasal Cannula 2.0 08/31/19 00:07 111 24 113/76 (88) 99 08/31/19 00:00 117 08/30/19 23:46 101 08/30/19 23:36 108 08/30/19 23:20 98.0 136 22 148/88 (108) 98 08/30/19 23:01 106 08/30/19 22:52 137 08/30/19 22:49 140 150/90 08/30/19 21:00 Room Air 08/30/19 20:00 101 08/30/19 20:00 97.9 108 20 150/90 (110) 99 08/30/19 18:46 Room Air 08/30/19 18:20 99.3 87 19 115/76 97 Room Air 08/30/19 18:20 99.3 87 19 115/76 97 Room Air 08/30/19 16:57 99.3 102 21 128/58 97 Room Air 08/30/19 15:54 98 156/78 08/30/19 15:32 121 152/75 08/30/19 14:47 99.3 138 25 151/75 99 Room Air 08/30/19 14:47 138 25 Room Air 08/30/19 14:42 99.3 138 25 151/75 (100) 99 Room Air Intake and Output 08/30/19 08/31/19 19:00 07:00 Intake Total 200 ml 150 ml Output Total 200 ml Balance 200 ml -50 ml Intake Oral 200 ml 150 ml Output Urine Total 200 ml # Voids 4 1 # Bowel Movements 1 Laboratory Tests Test 08/30/19 15:28 08/30/19 15:40 08/30/19 23:00 08/31/19 03:15 White Blood Count 9.5 K/UL (4.8-10.8) Red Blood Count 5.14 M/UL (4.20-5.40) Hemoglobin 13.6 G/DL (12.0-16.0) Hematocrit 41.0 % (37.0-47.0) Mean Corpuscular Volume 80 FL (80-99) Mean Corpuscular Hemoglobin 26.4 PG (27.0-31.0) L Mean Corpuscular Hemoglobin Concent 33.2 G/DL (32.0-36.0) Red Cell Distribution Width 13.0 % (11.6-14.8) Platelet Count 349 K/UL (150-450) Mean Platelet Volume 5.9 FL (6.5-10.1) L Neutrophils (%) (Auto) 72.2 % (45.0-75.0) Lymphocytes (%) (Auto) 18.4 % (20.0-45.0) L Monocytes (%) (Auto) 7.9 % (1.0-10.0) Eosinophils (%) (Auto) 0.6 % (0.0-3.0) Basophils (%) (Auto) 1.0 % (0.0-2.0) Prothrombin Time 11.7 SEC (9.30-11.50) H Prothromb Time International Ratio 1.1 (0.9-1.1) Activated Partial Thromboplast Time 27 SEC (23-33) Sodium Level 136 MMOL/L (136-145) Potassium Level 3.4 MMOL/L (3.5-5.1) L Chloride Level 100 MMOL/L (98-107) Carbon Dioxide Level 25 MMOL/L (21-32) Anion Gap 12 mmol/L (5-15) Blood Urea Nitrogen 4 mg/dL (7-18) L Creatinine 0.8 MG/DL (0.55-1.30) Estimat Glomerular Filtration Rate > 60 mL/min (>60) Glucose Level 226 MG/DL (74-106) H Calcium Level 10.0 MG/DL (8.5-10.1) Total Bilirubin 0.3 MG/DL (0.2-1.0) Aspartate Amino Transf (AST/SGOT) 12 U/L (15-37) L Alanine Aminotransferase (ALT/SGPT) 15 U/L (12-78) Alkaline Phosphatase 91 U/L (46-116) Troponin I 0.000 ng/mL (0.000-0.056) 0.000 ng/mL (0.000-0.056) Pro-B-Type Natriuretic Peptide 1440 pg/mL (0-125) H Total Protein 7.5 G/DL (6.4-8.2) Albumin 4.1 G/DL (3.4-5.0) Globulin 3.4 g/dL Albumin/Globulin Ratio 1.2 (1.0-2.7) Urine Color Pale yellow Urine Appearance Clear Urine pH 5 (4.5-8.0) Urine Specific [place] 1.015 (1.005-1.035) Urine Protein 1+ (NEGATIVE) H Urine Glucose (UA) Negative (NEGATIVE) Urine Ketones 2+ (NEGATIVE) H Urine Blood Negative (NEGATIVE) Urine Nitrite Negative (NEGATIVE) Urine Bilirubin Negative (NEGATIVE) Urine Urobilinogen Normal MG/DL (0.0-1.0) Urine Leukocyte Esterase 2+ (NEGATIVE) H Urine RBC 0-2 /HPF (0 - 2) Urine WBC 2-4 /HPF (0 - 2) Urine Squamous Epithelial Cells Moderate /LPF (NONE/OCC) H Urine Bacteria Occasional /HPF (NONE) Urine Opiates Screen Positive (NEGATIVE) H Urine Barbiturates Screen Negative (NEGATIVE) Phencyclidine (PCP) Screen Negative (NEGATIVE) Urine Amphetamines Screen Negative (NEGATIVE) Urine Benzodiazepines Screen Negative (NEGATIVE) Urine Cocaine Screen Negative (NEGATIVE) Urine Marijuana (THC) Screen Negative (NEGATIVE) POC Whole Blood Glucose 149 MG/DL (74-106) H Test 08/31/19 11:25 Troponin I 0.000 ng/mL (0.000-0.056) Digoxin Level 1.2 NG/ML (0.9-2.0) Iggy Girard MD Aug 31, 2019 12:49
--- NOTE | 2019-08-31 14:25 | NUR ---
NURSE NOTES: PICC line Team at bedside,PICC Line insertion done.
--- NOTE | 2019-08-31 14:39 | NUR ---
CASE MANAGEMENT: INITIAL REVIEW 73 YO F PRESENTED TO ED FROM MD OFFICE CC: DYSPNEA. CP. PMHx: Atrial fibrillation, hypertension, hyperlipidemia, COPD, asthma, diabetes, CAD SI:RAPID A FIB T 99.3 HR 138 RR 25 B/P 151/75 SATS 99% ON RA LABS: K 3.4 BUN 4 GLU 226 AST 12 BNP 1440 IS: CARDIZEM IV X1 ASA PO X1 EKG Rapid atrial fibrillation, normal axis, nonspecific T wave flattening CXR Impression: No acute disease PATIENT ADMITTED TO ICU 08/30/2019 @ 1514 DCP: TBD PLAN OF CARE: Start anticoagulation, Lovenox. Start metoprolol, digoxin and beta-radha. Cardiology and Pulmonary consult. DuoNeb, oxygen, and bronchodilator treatments.
--- NOTE | 2019-08-31 16:00 | NUR ---
NURSE NOTES: Pt brought down to Radiology,to fix the MADELEINE PICC line per Radiology PICC line is coiled.
--- NOTE | 2019-08-31 17:10 | NUR ---
NURSE NOTES: Pt back to ICU per bed ,awake,alert in no distress,PICC line to MADELEINE not flushing.
--- NOTE | 2019-08-31 17:52 | Diagnostic Imaging Report ---
PICC PLACEMENT; BILATERAL CENTRAL VENOGRAM Indications: Needs long-term IV access Technique: Total sterile technique, including sterile probe cover and sterile gel, hat, mask,, sterile gown, large sterile drape, and preparation with 2% chlorhexidine utilized. Bedside, ultrasound demonstrated patent right basilic vein. Local anesthesia with 1% lidocaine. Under real-time ultrasound guidance, puncture of right basilic vein vein using 21-gauge needle, passage 0.018 guidewire, exchange for 4 Singaporean peel-away sheath. 4 Singaporean Bard dual-lumen power PICC cut to 35 cm. It was inserted through the peel-away sheath. Peel-away sheath and guidewire removed. Catheter fixed to the skin. Both catheter ports aspirated and flushed. Patient tolerated procedure well, without immediate complication. Digital radiograph demonstrated tip at the right subclavian vein. As intended use of PICC is for pressors, the patient was brought to fluoroscopy for catheter repositioning at a more central location. The indwelling right PICC was cannulated with an 0.018 exchange wire, was passed into the right atrium. A new catheter was cut to length, but could not be passed over the wire at the level of the brachiocephalic vein. A 4 Singaporean Kumpe was inserted to cannulate the suspected stenosis. At this point, contrast injection was performed confirming high-grade right brachiocephalic stenosis. Attention was turned to the left arm. Ultrasound demonstrated patent left brachial vein .Local anesthesia with 1% lidocaine. Under real-time ultrasound guidance, puncture of left brachial vein vein using 21-gauge needle, passage 0.018 guidewire, which was used to determine appropriate catheter length, exchange for 5 Singaporean peel-away sheath. The wire not able to pass the left subclavian vein. A 5 Singaporean Kumpe is inserted, through which a venogram was performed, documenting high-grade left subclavian/brachiocephalic confluence stenosis. After exhaustive attempts, the wire and Kumpe catheter could not pass into the left brachiocephalic vein. The access was abandoned. 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 Inability to cannulate centrally on either side with diagnostic catheter or PICC. Right basilic PICC positioned at the level of the right subclavian vein. If central access is required, recommend placement of IJ central line.
[2019-08-31] MEDS: Eliquis 5mg tablet ORAL SCH (18:12)
--- NOTE | 2019-08-31 19:27 | NUR ---
HAND-OFF: Report given to Nivia Carlson RN.
--- NOTE | 2019-08-31 19:30 | NUR ---
NURSE NOTES: Report received from ABI Rees. 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
[2019-08-31] MEDS: Dyna-Hex 2% Top Sol 2oz TOPIC SCH (19:58)
[2019-08-31] MEDS: BusPIRone 5mg Tab ORAL SCH (20:19)
[2019-08-31] MEDS: Metoprolol Tartrate 50mg tab ORAL SCH (20:21)
[2019-08-31] MEDS: TraZODone 100mg tab ORAL SCH (20:23)
[2019-08-31] MEDS: Levemir Flexpen SUBQ SCH (20:39)
[2019-08-31] MEDS ORDERED: Levemir Flexpen SUBQ SCH (21:00)
[2019-08-31] MEDS ORDERED: TraZODone 100mg tab ORAL SCH (21:00)
--- NOTE | 2019-08-31 21:00 | NUR ---
NURSE NOTES: PM meds, crushed with apple sauce given Pt is calm, afebrile, and VSS. Will contiue to monitor
--- NOTE | 2019-08-31 21:38 | NUR ---
NURSE NOTES: Called and spoke with MD Boland at this time. Informed him patients newly inserted picc line is clogged. MD Ordered cathflow at this time. Also notified him about BP 80/48 after metoprolol was given, ordered is to hold next dose. Orders read back and confirmed by .
[2019-08-31] MEDS ORDERED: Cathflo Alteplase 2mg Inj INJ ONE (22:00)
--- NOTE | 2019-08-31 22:30 | Consultation ---
DATE OF CONSULTATION: 08/31/2019 CARDIOLOGY CONSULTATION CONSULTING PHYSICIAN: Iggy Girard MD REFERRING PHYSICIAN: Clemente Boland MD REASON FOR CONSULTATION: Management of hypertension, atrial fibrillation with rapid ventricular response. HISTORY OF PRESENT ILLNESS: The patient is a very pleasant 73-year-old lady that I am quite familiar from multiple previous hospitalizations. The patient has a history of hypertension, diabetes, and chronic atrial fibrillation as well as asthma and COPD as well as a history of prior CVA and gastroesophageal reflux disease who presented to the hospital complaining of chest pain. The patient was seen at Dr. Boland's office and was advised to come to the emergency room. The patient was also feeling short of breath and was found to be in atrial fibrillation. Per my order overnight, the patient was transferred to intensive care unit to be started on Cardizem drip. This morning, patient is still tachycardic, but has been unable to start Cardizem drip yet as the patient has no IV access, heart rate is around 100s. REVIEW OF SYSTEMS: Negative other than what was mentioned in history of present illness. PAST MEDICAL HISTORY: As mentioned above. FAMILY HISTORY: Noncontributory. SOCIAL HISTORY: He lives at home. Does not smoke or drink alcohol. PHYSICAL EXAMINATION: VITAL SIGNS: Show blood pressure of 100/55, pulse 110, respirations 18, temperature 97.7. HEAD AND NECK: Shows no JVD. LUNGS: Decreased breath sounds. CARDIOVASCULAR: Irregularly irregular, tachycardic. S1 and S2 with no gallop or murmur. ABDOMEN: Soft. EXTREMITIES: No pitting edema. LABORATORY AND DIAGNOSTIC DATA: Labs show white count of 9.5, hemoglobin 13.7, hematocrit of 41, and platelet count 349. Sodium is 135, potassium 3.4, BUN of 4, creatinine 0.8. Troponin negative x3. ASSESSMENT AND PLAN: 1. Chest pain. The patient was ruled out for myocardial infarction. This is likely due to the patient's atrial fibrillation with rapid ventricular response. We will get an echocardiogram for further evaluation. 2. Atrial fibrillation with rapid ventricular response. The patient is on Cardizem drip, however, he does not have any access at this time. Increase metoprolol to 50 mg b.i.d. and start the patient on Eliquis for anticoagulation. The patient is also on daily. We may need to add Cardizem to her medical regimen. 3. Hypertension, on losartan 50 b.i.d. as well as metoprolol 50 mg b.i.d. We will add p.r.n. clonidine to her medical regimen. 4. Diabetes. 5. History of depression. 6. Hyperlipidemia, on Lipitor. Thank you very much for allowing me to participate in the care of this patient. Please do not hesitate to contact me for any questions regarding my evaluation. Sincerely, Iggy Girard M.D. DR: Davi JOB#: [id number] CC:
--- NOTE | 2019-08-31 23:00 | NUR ---
NURSE NOTES: Pt is asleep Pt turns by herself Afebrile and VSS. Safety measure observed Will continue to monitor
--- NOTE | 2019-08-31 23:00 | Progress Note ---
DATE: 08/30/2019 PROGRESS NOTE/H AND P LOCATION: ICU. SUBJECTIVE: She is an elderly female in the ICU. Heart rate still varies from 110 to 130. The patient has no IV access. PICC line was placed for medical treatment. The patient is otherwise mild to moderate short of breath. Heart rate is still staying 120s. Blood pressure is 130/70, pulse 110 to 130, respirations 18 to 24, temperature no fever. Skin is good skin turgor. PHYSICAL EXAMINATION: HEENT: Mild JVD. CHEST: Bilaterally scattered crackles. CARDIOVASCULAR: Irregularly irregular rhythm with RVR. ABDOMEN: Soft. Positive bowel sounds. Nontender. EXTREMITIES: No edema. GENITOURINARY: Deferred. LABORATORY AND DIAGNOSTIC DATA: Troponin and BNP was about 14. Troponins are negative. EKG atrial fibrillation with rapid ventricular rate. White counts are normal. ASSESSMENT: 1. Atrial fibrillation with rapid ventricular rate. 2. Congestive heart failure, right ventricular failure. 3. Right diastolic failure. 4. Hypertension. 5. Diabetes. 6. Depression. DIET: 1. She is on 2 grams sodium, 1800 ADA diet with sliding scale Accu-Chek. 2. Added Cardizem. 3. Meanwhile need a PICC line. 4. Continue metoprolol p.o. 5. Continue digoxin. 6. Cardiology on consult. 7. Discussed with Dr. Girard as well as charge nurse, also Pulmonary is on case because of acute COPD. Clemente Boland M.D. DR: Michael JOB#: [id number] CC:
--- NOTE | 2019-08-31 23:42 | Initial Psychiatric Evaluation ---
Psychiatry Consultation Psychiatry Consultation Chief Complaint: Dyspnea/Respdistress Allergies: Coded Allergies: MORPHINE (Verified Allergy, Mild, Rash, 08/23/12) SHELLFISH DERIVED (Unverified Allergy, Unknown, 01/01/15) ZOLPIDEM TARTRATE (Verified Adverse Reaction, Mild, Altered Mental Status , 11/09/12) severe confusion Medication History Scheduled Aspirin* (Aspirin*), 81 MG ORAL DAILY, (Reported) Atorvastatin Calcium* (Lipitor*), 20 MG ORAL BEDTIME, (Reported) Buspirone HCl* (Buspirone HCl*), 5 MG ORAL HS, (Reported) Clonidine Hcl (Clonidine Hcl), 0.1 MG PO DAILY, (Reported) Diclofenac Sodium (Solaraze), 2 GM TP FOUR TIMES A DAY, (Reported) Docusate Sodium (Docusate Sodium), 250 MG ORAL DAILY, (Reported) Furosemide* (Lasix*), 40 MG ORAL DAILY, (Reported) Gabapentin (Neurontin), 600 MG PO BID, (Reported) Insulin Detemir (Levemir), 10 UNITS SUBQ am, (Reported) Ipratropium/Albuterol Sulfate (DuoNeb 0.5-3(2.5)mg/3ml), 3 ML HHN Q4HR, ( Reported) Levothyroxine Sodium* (Levothyroxine Sodium*), 75 MCG ORAL DAILY, (Reported) Losartan Potassium* (Cozaar*), 50 MG ORAL TWICE A DAY, (Reported) Memantine Hcl* (Namenda*), 28 MG ORAL DAILY, (Reported) Metoprolol Succinate* (Metoprolol Succinate*), 25 MG ORAL TWICE A DAY, (Reported ) Pantoprazole* (Protonix*), 40 MG ORAL DAILY, (Reported) Trazodone* (Trazodone*), 150 MG ORAL BEDTIME, (Reported) Scheduled PRN Insulin Aspart (Novolog Flexpen), UNITS SUBQ ACHS PRN for Hyperglycemia, ( Reported) Melatonin (Melatonin), 3 MG ORAL BEDTIME PRN for Insomnia, (Reported) Tramadol Hcl* (Ultram*), 50 MG ORAL Q6H PRN for For Pain Miscellaneous Medications Isosorbide Dinitrate (Isosorbide Dinitrate), 30 MG GT, (Reported) Objective Data Height (Feet): 5 Height (Inches): 3.50 Weight (Pounds): 176 Angela Nicole MD Aug 31, 2019 23:42
[2019-09-01] VITALS (25 sets, daily range): BP systolic 78–123; BP diastolic 43–82
[2019-09-01] MEDS: dilTIAZem Premix 125mg/125ml 125 ML IVPB SCH
--- NOTE | 2019-09-01 03:00 | NUR ---
NURSE NOTES: Pt is asleep Pt turns by herself Afebrile and VSS. Safety measure observed Will continue to monitor
--- NOTE | 2019-09-01 05:00 | NUR ---
NURSE NOTES: AM care and AM med provided Voided with bedpan Ice water with ice preferred Pt turns by herself Afebrile and VSS. Safety measure observed Will continue to monitor
[2019-09-01] MEDS: NovoLOG Insulin Flexpen SUBQ SCH ×4 (05:42→20:42)
--- NOTE | 2019-09-01 07:20 | NUR ---
NURSE NOTES: Received report from ABI Gonzáles. Patient asleep and responsive to verbal. Able to follow commands. On oxygen 2L/min via NC. O2 sat 100% on the monitor. AFib 89 on the monitor. No distress/SOB noted. Kept dry, clean and comfortable. Bed in lowest position and locked. Bed alarm on. Will continue plan of care.
[2019-09-01] MEDS: Memantine 10mg tab ORAL SCH ×2 (08:24→17:06)
[2019-09-01] MEDS: Metoprolol Tartrate 50mg tab ORAL SCH ×3 (08:25→21:00)
[2019-09-01] MEDS: Aspirin Baby 81mg ORAL SCH (08:25)
[2019-09-01] MEDS: Eliquis 5mg tablet ORAL SCH ×2 (08:26→17:06)
[2019-09-01] MEDS: Docusate 250mg cap ORAL SCH (08:26)
[2019-09-01] MEDS: Losartan 50mg tab ORAL SCH (08:29)
--- NOTE | 2019-09-01 08:55 | NUR ---
NURSE NOTES: Seen by Dr. Nazario and assessed patient.
--- NOTE | 2019-09-01 09:46 | Critical Care Progress Note ---
Assessment/Plan Assessment/Plan 1. Rapid AFib. 2. COPD. 3. Diabetes mellitus. 4. Hypertension. 5. CAD. 6. CVA. 7. GERD. PLAN care noted respiratory care oxygen DVT prophylaxis rate control cardiology follow up medications/laboratory data/nursing notes/ICU care reviewed in detail note reviewed and edited care discussed with RN and RT ICU time spent >40 minutes Critical Care - Subjective Interval Events: awake no distress alert on oxygen Condition: critical EKG Rhythm: Atrial Fibrillation I&O: Intake and Output 08/31/19 09/01/19 19:00 07:00 Intake Total 1200 ml 720 ml Output Total 700 ml Balance 500 ml 720 ml Intake Oral 1200 ml 720 ml Output Urine Total 700 ml # Voids 1 Critical Care - Objective Last 24 Hour Vital Signs Date Time Temp Pulse Resp B/P (MAP) Pulse Ox O2 Delivery O2 Flow Rate FiO2 09/01/19 08:29 101/64 09/01/19 08:26 93 09/01/19 07:33 100 Nasal Cannula 2.0 28 09/01/19 07:00 87 21 97/66 (76) 100 09/01/19 06:00 89 17 99/65 (76) 100 09/01/19 05:00 82 19 78/50 (59) 100 09/01/19 04:00 82 09/01/19 04:00 82 19 88/58 (68) 100 09/01/19 04:00 Nasal Cannula 2.0 09/01/19 03:00 90 19 100/67 (78) 100 09/01/19 02:00 86 18 92/58 (69) 100 09/01/19 01:00 92 19 86/51 (63) 100 09/01/19 00:00 93 17 85/62 (70) 97 09/01/19 00:00 Nasal Cannula 2.0 08/31/19 23:00 93 18 97/63 (74) 99 08/31/19 22:00 87 18 103/63 (76) 99 08/31/19 21:00 89 7 81/45 (57) 97 08/31/19 21:00 Nasal Cannula 2.0 08/31/19 20:21 87 08/31/19 20:00 79 19 90/63 (72) 99 08/31/19 20:00 79 08/31/19 19:28 98 Nasal Cannula 2.0 28 08/31/19 19:27 73 18 98 Nasal Cannula 2.0 28 08/31/19 19:00 98.3 88 17 93/50 (64) 97 08/31/19 18:11 105/69 08/31/19 18:00 95 20 114/59 (77) 99 08/31/19 17:00 104 20 95/72 (80) 97 08/31/19 16:00 Nasal Cannula 2.0 08/31/19 16:00 86 08/31/19 16:00 97.5 104 19 97 08/31/19 15:00 88 17 97 08/31/19 14:00 90 18 105/69 (81) 97 08/31/19 13:00 84 18 97/58 (71) 97 08/31/19 12:00 92 08/31/19 12:00 Nasal Cannula 2.0 08/31/19 12:00 97.7 107 19 99/55 (70) 97 08/31/19 11:00 92 18 100 08/31/19 10:00 114 19 100 Labs: Labs Test 08/30/19 15:28 08/30/19 15:40 08/30/19 23:00 08/31/19 03:15 White Blood Count 9.5 K/UL (4.8-10.8) Red Blood Count 5.14 M/UL (4.20-5.40) Hemoglobin 13.6 G/DL (12.0-16.0) Hematocrit 41.0 % (37.0-47.0) Mean Corpuscular Volume 80 FL (80-99) Mean Corpuscular Hemoglobin 26.4 PG (27.0-31.0) Mean Corpuscular Hemoglobin Concent 33.2 G/DL (32.0-36.0) Red Cell Distribution Width 13.0 % (11.6-14.8) Platelet Count 349 K/UL (150-450) Mean Platelet Volume 5.9 FL (6.5-10.1) Neutrophils (%) (Auto) 72.2 % (45.0-75.0) Lymphocytes (%) (Auto) 18.4 % (20.0-45.0) Monocytes (%) (Auto) 7.9 % (1.0-10.0) Eosinophils (%) (Auto) 0.6 % (0.0-3.0) Basophils (%) (Auto) 1.0 % (0.0-2.0) Prothrombin Time 11.7 SEC (9.30-11.50) Prothromb Time International Ratio 1.1 (0.9-1.1) Activated Partial Thromboplast Time 27 SEC (23-33) Sodium Level 136 MMOL/L (136-145) Potassium Level 3.4 MMOL/L (3.5-5.1) Chloride Level 100 MMOL/L (98-107) Carbon Dioxide Level 25 MMOL/L (21-32) Anion Gap 12 mmol/L (5-15) Blood Urea Nitrogen 4 mg/dL (7-18) Creatinine 0.8 MG/DL (0.55-1.30) Estimat Glomerular Filtration Rate > 60 mL/min (>60) Glucose Level 226 MG/DL (74-106) Calcium Level 10.0 MG/DL (8.5-10.1) Total Bilirubin 0.3 MG/DL (0.2-1.0) Aspartate Amino Transf (AST/SGOT) 12 U/L (15-37) Alanine Aminotransferase (ALT/SGPT) 15 U/L (12-78) Alkaline Phosphatase 91 U/L (46-116) Troponin I 0.000 ng/mL (0.000-0.056) 0.000 ng/mL (0.000-0.056) Pro-B-Type Natriuretic Peptide 1440 pg/mL (0-125) Total Protein 7.5 G/DL (6.4-8.2) Albumin 4.1 G/DL (3.4-5.0) Globulin 3.4 g/dL Albumin/Globulin Ratio 1.2 (1.0-2.7) Urine Color Pale yellow Urine Appearance Clear Urine pH 5 (4.5-8.0) Urine Specific [place] 1.015 (1.005-1.035) Urine Protein 1+ (NEGATIVE) Urine Glucose (UA) Negative (NEGATIVE) Urine Ketones 2+ (NEGATIVE) Urine Blood Negative (NEGATIVE) Urine Nitrite Negative (NEGATIVE) Urine Bilirubin Negative (NEGATIVE) Urine Urobilinogen Normal MG/DL (0.0-1.0) Urine Leukocyte Esterase 2+ (NEGATIVE) Urine RBC 0-2 /HPF (0 - 2) Urine WBC 2-4 /HPF (0 - 2) Urine Squamous Epithelial Cells Moderate /LPF (NONE/OCC) Urine Bacteria Occasional /HPF (NONE) Urine Opiates Screen Positive (NEGATIVE) Urine Barbiturates Screen Negative (NEGATIVE) Phencyclidine (PCP) Screen Negative (NEGATIVE) Urine Amphetamines Screen Negative (NEGATIVE) Urine Benzodiazepines Screen Negative (NEGATIVE) Urine Cocaine Screen Negative (NEGATIVE) Urine Marijuana (THC) Screen Negative (NEGATIVE) POC Whole Blood Glucose 149 MG/DL (74-106) Test 08/31/19 11:25 Troponin I 0.000 ng/mL (0.000-0.056) Digoxin Level 1.2 NG/ML (0.9-2.0) Objective: WDWN NAD clear breath sounds bilaterally without rhonchi or wheeze S1S2 iRRR without MRG NABS nontender no HSM no CCE nonfocal Accucheck: 168 [place] Nazario MD Sep 01, 2019 09:46
[2019-09-01 11:06] LABS: BASOPHILS % (AUTO) 0.7 % (0.0-2.0); HEMOGLOBIN 12.5 G/DL (12.0-16.0); LYMPHOCYTES % (AUTO) 23.6 % (20.0-45.0); MEAN CORPUSCULAR VOLUME 84 FL (80-99); NEUTROPHILS % (AUTO) 64.7 % (45.0-75.0); PLATELET COUNT 313 K/UL (150-450); RED BLOOD COUNT 4.76 M/UL (4.20-5.40); RED CELL DISTRIBUTION WIDTH 13.2 % (11.6-14.8)
[2019-09-01 11:19] LABS: ALANINE AMINOTRANSFERASE 12 U/L (12-78); ALBUMIN 3.4 G/DL (3.4-5.0); ALKALINE PHOSPHATASE 76 U/L (46-116); ANION GAP 7 mmol/L (5-15); ASPARTATE AMINO TRANSFERASE 13 U/L (15-37); BILIRUBIN,TOTAL 0.3 MG/DL (0.2-1.0); BLOOD UREA NITROGEN 9 mg/dL (7-18); CALCIUM 9.7 MG/DL (8.5-10.1); CARBON DIOXIDE 26 MMOL/L (21-32); CHLORIDE 101 MMOL/L (98-107); CREATININE 0.8 MG/DL (0.55-1.30); POTASSIUM 4.4 MMOL/L (3.5-5.1); SODIUM 134 MMOL/L (136-145)
--- NOTE | 2019-09-01 11:19 | NUR ---
NURSE NOTES: BS 151. Patient refused insulin. Explained benefits and risk x3. Still refused. Will continue plan of care.
--- NOTE | 2019-09-01 13:46 | NUR ---
NURSE NOTES: Seen by Dr. Girard and assessed patient. DC losartan. Will continue plan of care.
--- NOTE | 2019-09-01 14:05 | NUR ---
NURSE NOTES: Provided bed adams. Voided x1. Changed bed linen.
--- NOTE | 2019-09-01 14:15 | Cardiac Electrophysiology PN ---
Assessment/Plan Assessment/Plan 1. Chest pain. The patient was ruled out for myocardial infarction. This is likely due to the patient's atrial fibrillation with rapid ventricular response. EF 55% 2. Atrial fibrillation with rapid ventricular response. On metoprolol to 50 mg b.i.d. and Eliquis Also on Dig 0.25 daily and Dig level in 1.2 3. Hypertension. DC losartan to maximize metoprolol 50 mg b.i.d. 4. Diabetes. 5. History of depression. 6. Hyperlipidemia, on Lipitor. SHEFALI RN Subjective Subjective HR better controlled in fib. Has PICC line but is not working. Cardizem drip never started. BP was in 70s and didnt get Lopressor this AM. Objective Last 24 Hour Vital Signs Date Time Temp Pulse Resp B/P (MAP) Pulse Ox O2 Delivery O2 Flow Rate FiO2 09/01/19 10:00 97 15 90/60 (70) 98 09/01/19 09:00 93 101/64 09/01/19 09:00 96 18 82/54 (63) 100 09/01/19 08:29 101/64 09/01/19 08:26 93 09/01/19 08:00 97.6 90 15 101/64 (76) 96 09/01/19 08:00 Nasal Cannula 2.0 09/01/19 07:33 100 Nasal Cannula 2.0 28 09/01/19 07:00 87 21 97/66 (76) 100 09/01/19 06:00 89 17 99/65 (76) 100 09/01/19 05:00 82 19 78/50 (59) 100 09/01/19 04:00 82 09/01/19 04:00 82 19 88/58 (68) 100 09/01/19 04:00 Nasal Cannula 2.0 09/01/19 03:00 90 19 100/67 (78) 100 09/01/19 02:00 86 18 92/58 (69) 100 09/01/19 01:00 92 19 86/51 (63) 100 09/01/19 00:00 93 17 85/62 (70) 97 09/01/19 00:00 Nasal Cannula 2.0 08/31/19 23:00 93 18 97/63 (74) 99 08/31/19 22:00 87 18 103/63 (76) 99 08/31/19 21:00 89 7 81/45 (57) 97 08/31/19 21:00 Nasal Cannula 2.0 08/31/19 20:21 87 08/31/19 20:00 79 19 90/63 (72) 99 08/31/19 20:00 79 08/31/19 19:28 98 Nasal Cannula 2.0 28 08/31/19 19:27 73 18 98 Nasal Cannula 2.0 28 08/31/19 19:00 98.3 88 17 93/50 (64) 97 08/31/19 18:11 105/69 08/31/19 18:00 95 20 114/59 (77) 99 08/31/19 17:00 104 20 95/72 (80) 97 08/31/19 16:00 Nasal Cannula 2.0 08/31/19 16:00 86 08/31/19 16:00 97.5 104 19 97 08/31/19 15:00 88 17 97 Intake and Output 08/31/19 09/01/19 19:00 07:00 Intake Total 1200 ml 720 ml Output Total 700 ml Balance 500 ml 720 ml Intake Oral 1200 ml 720 ml Output Urine Total 700 ml # Voids 1 Laboratory Tests Test 09/01/19 10:55 09/01/19 11:17 White Blood Count 9.0 K/UL (4.8-10.8) Red Blood Count 4.76 M/UL (4.20-5.40) Hemoglobin 12.5 G/DL (12.0-16.0) Hematocrit 40.0 % (37.0-47.0) Mean Corpuscular Volume 84 FL (80-99) Mean Corpuscular Hemoglobin 26.3 PG (27.0-31.0) L Mean Corpuscular Hemoglobin Concent 31.4 G/DL (32.0-36.0) L Red Cell Distribution Width 13.2 % (11.6-14.8) Platelet Count 313 K/UL (150-450) Mean Platelet Volume 6.0 FL (6.5-10.1) L Neutrophils (%) (Auto) 64.7 % (45.0-75.0) Lymphocytes (%) (Auto) 23.6 % (20.0-45.0) Monocytes (%) (Auto) 9.0 % (1.0-10.0) Eosinophils (%) (Auto) 2.0 % (0.0-3.0) Basophils (%) (Auto) 0.7 % (0.0-2.0) Sodium Level 134 MMOL/L (136-145) L Potassium Level 4.4 MMOL/L (3.5-5.1) Chloride Level 101 MMOL/L (98-107) Carbon Dioxide Level 26 MMOL/L (21-32) Anion Gap 7 mmol/L (5-15) Blood Urea Nitrogen 9 mg/dL (7-18) Creatinine 0.8 MG/DL (0.55-1.30) Estimat Glomerular Filtration Rate > 60 mL/min (>60) Glucose Level 161 MG/DL (74-106) H Calcium Level 9.7 MG/DL (8.5-10.1) Total Bilirubin 0.3 MG/DL (0.2-1.0) Aspartate Amino Transf (AST/SGOT) 13 U/L (15-37) L Alanine Aminotransferase (ALT/SGPT) 12 U/L (12-78) Alkaline Phosphatase 76 U/L (46-116) Total Protein 6.7 G/DL (6.4-8.2) Albumin 3.4 G/DL (3.4-5.0) Globulin 3.3 g/dL Albumin/Globulin Ratio 1.0 (1.0-2.7) POC Whole Blood Glucose 151 MG/DL (74-106) H Objective HEAD AND NECK: Shows no JVD. LUNGS: Decreased breath sounds. CARDIOVASCULAR: Irregularly irregular, tachycardic. S1 and S2 with no gallop or murmur. ABDOMEN: Soft. EXTREMITIES: No pitting edema. Iggy Girard MD Sep 01, 2019 14:15
--- NOTE | 2019-09-01 16:02 | NUR ---
NURSE NOTES: Partial bed bath given. Patient was able to assist.
--- NOTE | 2019-09-01 17:50 | NUR ---
NURSE NOTES: Provided bed adams. Voided x1.
--- NOTE | 2019-09-01 19:13 | NUR ---
HAND-OFF: Report given to ABI Rocha. Endorsed plan of care.
--- NOTE | 2019-09-01 19:30 | NUR ---
NURSE NOTES: Received Pt is resting on the bed and agitate, awake and forgetful. Given realty orientation. On O2 2L via nasal cannula and SaO2 99-100% noted. On bug trimmer with A-fib and HR: 105's. Denied pain at this time. No fever. IV site intact and no sign of infiltration noted. Pt has Rt. upper arm PICC line but occluded. Unable to flush with NS. Pt has Rt. knee old scab. Placed fall precaution. Will continue to care plan.
[2019-09-01] MEDS: Dyna-Hex 2% Top Sol 2oz TOPIC SCH (20:14)
[2019-09-01] MEDS: TraZODone 100mg tab ORAL SCH (20:24)
[2019-09-01] MEDS: BusPIRone 5mg Tab ORAL SCH (20:24)
[2019-09-01] MEDS: Levemir Flexpen SUBQ SCH (20:41)
--- NOTE | 2019-09-01 22:00 | NUR ---
NURSE NOTES: Noted BP was 96/64mmHg and HR:105's with A-fib. Held 9Pm Metoprolol 50mg PO medication. Left message to Dr. Girard for verify for transfer order and awaiting call back. Will continue to monitor any change of condition.
--- NOTE | 2019-09-01 22:23 | Psych Consult Progress Note ---
Psychiatry Progress Note Psychiatry Progress Note Subjective the pt is confused with episodes agitation Medications Current Medications Medications (Trade) Dose Ordered Sig/Brandi Route PRN Reason Start Time Stop Time Status Last Admin Dose Admin Acetaminophen (Tylenol) 650 mg Q4H PRN ORAL Mild Pain (Pain Scale 1-3) 08/31/19 02:30 09/29/19 22:29 08/31/19 02:46 Albuterol/ Ipratropium (Albuterol/ Ipratropium) 3 ml Q4H PRN HHN Shortness of Breath 08/31/19 02:30 09/04/19 22:29 Apixaban (Eliquis) 5 mg BID ORAL 08/31/19 18:00 11/29/19 17:59 09/01/19 17:06 Aspirin (ASA) 81 mg DAILY ORAL 08/31/19 09:00 10/15/19 08:59 09/01/19 08:25 Atorvastatin Calcium (Lipitor) 20 mg BEDTIME ORAL 08/31/19 21:00 11/29/19 20:59 09/01/19 20:25 Buspirone HCl (Buspar) 5 mg QHS ORAL 08/31/19 21:00 11/28/19 23:19 09/01/19 20:24 Chlorhexidine Gluconate (Mignon-Hex 2%) 1 applic DAILY@1999 TOPIC 08/31/19 20:00 11/29/19 19:59 09/01/19 20:14 Dextrose (Dextrose 50%) 25 ml Q30M PRN IV Hypoglycemia 08/31/19 00:30 11/28/19 22:29 Dextrose (Dextrose 50%) 50 ml Q30M PRN IV Hypoglycemia 08/31/19 00:30 11/28/19 22:29 Digoxin (Lanoxin) 0.25 mg DAILY ORAL 08/31/19 09:00 11/29/19 08:59 09/01/19 08:26 Docusate Sodium (Colace) 250 mg DAILY ORAL 08/31/19 09:00 09/30/19 08:59 09/01/19 08:26 Gabapentin (Neurontin) 600 mg BID ORAL 08/31/19 09:00 09/30/19 08:59 09/01/19 17:06 Insulin Aspart (NovoLOG) BEFORE MEALS AND HS SUBQ 08/31/19 06:30 11/29/19 06:29 09/01/19 20:42 Insulin Detemir (Levemir) 15 units BEDTIME SUBQ 08/31/19 21:00 11/29/19 20:59 09/01/19 20:41 Levothyroxine Sodium (Synthroid) 75 mcg DAILY@0630 ORAL 08/31/19 06:30 09/30/19 06:29 09/01/19 05:14 Memantine (Namenda) 10 mg BID ORAL 08/31/19 09:00 09/30/19 08:59 09/01/19 17:06 Metoprolol Tartrate (Lopressor) 50 mg Q12HR ORAL 08/31/19 21:00 11/29/19 20:59 08/31/19 20:21 Pantoprazole (Protonix) 40 mg DAILY ORAL 08/31/19 09:00 09/30/19 08:59 09/01/19 08:26 Tramadol HCl (Ultram) 50 mg Q6H PRN ORAL For Pain 08/31/19 05:00 09/06/19 22:59 Trazodone HCl (Desyrel) 150 mg BEDTIME ORAL 08/31/19 21:00 09/30/19 20:59 09/01/19 20:24 Allergies: Coded Allergies: MORPHINE (Verified Allergy, Mild, Rash, 08/23/12) SHELLFISH DERIVED (Unverified Allergy, Unknown, 01/01/15) ZOLPIDEM TARTRATE (Verified Adverse Reaction, Mild, Altered Mental Status , 11/09/12) severe confusion Objective Data Height (Feet): 5 Height (Inches): 3.50 Weight (Pounds): 170 General Appearance: alert, confused, moderate distress, agitated, combative Behavior Mannerisms: poor eye contact Mental Status Exam - Affect: flat Mental Status Exam - Thought P: no abnormalities Mental Status Exam - Suicidal: not present Assessment/Plan Problem List: (1) Dementia with behavioral disturbance ICD Codes: F03.91 - Unspecified dementia with behavioral disturbance SNOMED: 5023828511106 Status: not improved, unchanged Assessment/Plan: dc trazadone seroquel standing and prn provided Angela Chapin MD Sep 01, 2019 22:23
--- NOTE | 2019-09-01 22:45 | Progress Note ---
DATE: 09/01/2019 SUBJECTIVE: This is an elderly 72-year-old female in ICU, came with atrial fibrillation with rapid ventricular rate and the patient was started on a beta radha, had calcium-channel radha anticoagulation. Cardiology consult was obtained. The patient is physically doing better, no distress. PHYSICAL EXAMINATION: VITAL SIGNS: Blood pressure is 130/70, pulse 110, respirations 18, no fever. HEENT: NAD. CHEST: Bilaterally clear. CARDIOVASCULAR: Regular rhythm. ABDOMEN: Soft. Positive bowel sounds. Nontender. EXTREMITIES: No edema GENITOURINARY: Deferred. ASSESSMENT: 1. AFib with rapid ventricular rate. 2. CHF. 3. Acute COPD exacerbation. 4. Hypertension. 5. Diabetes. 6. Degenerative arthritis. PLAN: 1. The patient on 2 grams sodium diet. 2. The patient is on a calcium-channel radha; and beta-radha digoxin. 3. Cardiology and pulmonary is on case. Clemente Boland M.D. DR: ART JOB#: [id number] CC:
--- NOTE | 2019-09-01 23:05 | NUR ---
NURSE NOTES: Get call back from Dr. Girard and he want keep the patient in ICU. Will continue to monitor.
[2019-09-02] VITALS (18 sets, daily range): BP systolic 98–156; BP diastolic 49–92
--- NOTE | 2019-09-02 | NUR ---
NURSE NOTES: Pt is sleeping on the bed and no sign of acute distress noted. On library monitor with A-Fib and HR: 95's. Will continue to monitor any change of condition.
--- NOTE | 2019-09-02 02:00 | NUR ---
NURSE NOTES: Pt is sleeping on the bed and no sign of acute distress noted. BP is stable and noted 113/70mmHg and HR 85's with A-fib. Provided good sleep environment. Will continue to care plan.
--- NOTE | 2019-09-02 04:00 | NUR ---
NURSE NOTES: Morning care was done. Cleaned Pt and applied lotion and cream. No sign of acute distress noted. On enrichment assistant with A-fib and HR: 80-90's. Denied pain at this time. Will continue to monitor any change of condition.
--- NOTE | 2019-09-02 06:00 | NUR ---
NURSE NOTES: Pt is resting on the bed and no sign of acute distress noted. Pt is awake and confused and forgetful. On color television console monitor with A-fib. Provided oral hydration. Assist for voiding with bedpan. Pt trying to get out of bed without assistance. Reminded Pt to use call light for assistance. Bed alarms on and 2 side rails up, applied non-skid socks and call light and bedside table within reach. Will continue to monitor any change of condition.
[2019-09-02] MEDS: NovoLOG Insulin Flexpen SUBQ SCH ×4 (06:30→21:28)
--- NOTE | 2019-09-02 07:05 | NUR ---
NURSE NOTES: Received report from Alejandro Mendiola RN. Pt in bed awake and orientedx1 or2 but forgetful. No c/o pain. Denied SOB. IV site in left wrist 24G TKO patent and intact. Left upper arm PICC noted but no not able to flush both lumens. Bed in lowest position and locked. Side railsx3 up for safety. Call light within easy reach. Will continue plan of care.
--- NOTE | 2019-09-02 07:16 | NUR ---
HAND-OFF: Report given to ABI Andres. PT is sleeping on the bed and no sign of acute distress noted.
--- NOTE | 2019-09-02 08:00 | NUR ---
NURSE NOTES: Pt in bed and had breakfast. No c/o pain. Denied pain. Remind pt to use call light for help.
[2019-09-02] MEDS: Aspirin Baby 81mg ORAL SCH (08:21)
[2019-09-02] MEDS: Memantine 10mg tab ORAL SCH ×2 (08:21→18:28)
[2019-09-02] MEDS: Docusate 250mg cap ORAL SCH (08:21)
[2019-09-02] MEDS: Eliquis 5mg tablet ORAL SCH ×2 (08:22→18:27)
--- NOTE | 2019-09-02 08:42 | Critical Care Progress Note ---
Assessment/Plan Assessment/Plan 1. Rapid AFib. 2. COPD. 3. Diabetes mellitus. 4. Hypertension. 5. CAD. 6. CVA. 7. GERD. PLAN care noted respiratory care oxygen needs low DVT prophylaxis rate control noted and reviewed drips noted cardiology follow up medications/laboratory data/nursing notes/ICU care reviewed in detail note reviewed and edited care discussed with RN and RT ICU time spent >40 minutes Critical Care - Subjective ROS Limited/Unobtainable: Yes Condition: critical I&O: Intake and Output 09/01/19 09/02/19 19:00 07:00 Intake Total 1260 ml 660 ml Balance 1260 ml 660 ml Intake Oral 1260 ml 660 ml # Voids 4 5 Critical Care - Objective Last 24 Hour Vital Signs Date Time Temp Pulse Resp B/P (MAP) Pulse Ox O2 Delivery O2 Flow Rate FiO2 09/02/19 08:22 103 09/02/19 08:00 97.1 97 17 122/74 (90) 98 09/02/19 07:53 96 Room Air 21 09/02/19 07:00 94 22 122/79 (93) 99 09/02/19 06:00 96 20 120/76 (91) 99 09/02/19 05:00 82 21 123/74 (90) 99 09/02/19 04:00 81 09/02/19 04:00 97.8 87 17 126/75 (92) 99 09/02/19 04:00 Room Air 09/02/19 03:00 84 17 119/72 (88) 100 09/02/19 02:00 85 16 113/70 (84) 100 09/02/19 01:00 94 19 112/67 (82) 97 09/02/19 00:00 Room Air 09/02/19 00:00 85 09/02/19 00:00 97.9 95 18 98/49 (65) 97 09/01/19 23:00 93 16 94/60 (71) 95 09/01/19 22:00 111 23 96/64 (75) 98 09/01/19 21:30 105 20 95/65 (75) 99 09/01/19 21:00 102 21 105/82 (90) 98 09/01/19 21:00 104 105/82 09/01/19 20:00 Nasal Cannula 2.0 09/01/19 20:00 97.8 98 16 123/63 (83) 100 09/01/19 20:00 100 09/01/19 19:23 100 Nasal Cannula 2.0 28 09/01/19 19:08 98 19 94/60 (71) 100 09/01/19 18:00 100 20 97/52 (67) 99 09/01/19 17:00 103 20 99/57 (71) 99 09/01/19 16:00 101 09/01/19 16:00 98.0 100 20 100/61 (74) 99 09/01/19 16:00 Room Air 09/01/19 15:00 103 20 121/80 (94) 99 09/01/19 14:00 103 18 92/76 (81) 09/01/19 13:00 100 19 110/58 (75) 100 09/01/19 12:00 Nasal Cannula 2.0 09/01/19 12:00 97.6 103 20 90/43 (59) 99 09/01/19 11:00 100 18 109/74 (86) 100 09/01/19 10:00 97 15 90/60 (70) 98 09/01/19 09:00 93 101/64 09/01/19 09:00 96 18 82/54 (63) 100 Labs: Laboratory Tests Test 09/01/19 10:55 09/01/19 11:17 White Blood Count 9.0 K/UL (4.8-10.8) Red Blood Count 4.76 M/UL (4.20-5.40) Hemoglobin 12.5 G/DL (12.0-16.0) Hematocrit 40.0 % (37.0-47.0) Mean Corpuscular Volume 84 FL (80-99) Mean Corpuscular Hemoglobin 26.3 PG (27.0-31.0) L Mean Corpuscular Hemoglobin Concent 31.4 G/DL (32.0-36.0) L Red Cell Distribution Width 13.2 % (11.6-14.8) Platelet Count 313 K/UL (150-450) Mean Platelet Volume 6.0 FL (6.5-10.1) L Neutrophils (%) (Auto) 64.7 % (45.0-75.0) Lymphocytes (%) (Auto) 23.6 % (20.0-45.0) Monocytes (%) (Auto) 9.0 % (1.0-10.0) Eosinophils (%) (Auto) 2.0 % (0.0-3.0) Basophils (%) (Auto) 0.7 % (0.0-2.0) Sodium Level 134 MMOL/L (136-145) L Potassium Level 4.4 MMOL/L (3.5-5.1) Chloride Level 101 MMOL/L (98-107) Carbon Dioxide Level 26 MMOL/L (21-32) Anion Gap 7 mmol/L (5-15) Blood Urea Nitrogen 9 mg/dL (7-18) Creatinine 0.8 MG/DL (0.55-1.30) Estimat Glomerular Filtration Rate > 60 mL/min (>60) Glucose Level 161 MG/DL (74-106) H Calcium Level 9.7 MG/DL (8.5-10.1) Total Bilirubin 0.3 MG/DL (0.2-1.0) Aspartate Amino Transf (AST/SGOT) 13 U/L (15-37) L Alanine Aminotransferase (ALT/SGPT) 12 U/L (12-78) Alkaline Phosphatase 76 U/L (46-116) Total Protein 6.7 G/DL (6.4-8.2) Albumin 3.4 G/DL (3.4-5.0) Globulin 3.3 g/dL Albumin/Globulin Ratio 1.0 (1.0-2.7) POC Whole Blood Glucose 151 MG/DL (74-106) H Objective: WDWN NAD clear breath sounds bilaterally without rhonchi or wheeze S1S2 iRRR without MRG NABS nontender no HSM no CCE nonfocal Accucheck: 128 [place] Nazario MD Sep 02, 2019 08:42
[2019-09-02] MEDS: Metoprolol Tartrate 50mg tab ORAL SCH ×2 (09:30→20:28)
--- NOTE | 2019-09-02 10:00 | NUR ---
NURSE NOTES: Pt is resting on the bed and no sign of acute distress noted. Pt in bed AOX2 but forgetful. On cardiac cath lab manager with A-fib but rate is controlled. VSS after Digoxin and Metoprolol. Provided oral hydration. Assist for voiding with bedpan and bowel movement with Bed side commode. Pt trying to get out of bed without assistance. Reminded Pt to use call light for assistance. Bed alarms on and side railsx3 up, applied non-skid socks and call light and bedside table within reach. Will continue plan of care.
--- NOTE | 2019-09-02 11:13 | NUR ---
NURSE NOTES: Made Dr. Friedman aware of stable BP after Metoprolol 50mg given. Pt will be transferred to Tele as ordered.
--- NOTE | 2019-09-02 12:00 | NUR ---
HAND-OFF: Report given to ABI Gu. Pt remains stable.
--- NOTE | 2019-09-02 12:02 | NUR ---
NURSE NOTES: Pt transferred from ICU. Received pt from ABI Briscoe. Pt A/O x2. No signs of acute respiratory and cardiac distress. Currently on room air. Non working PICC line on MADELEINE. SL on left wrist 24G, patent and dressing intact. Instructed pt to call for help if using the restroom. Pt verbalizes understanding. Bed in low position, side rails up x3 and call light within reach. Will continue to monitor.
[2019-09-02] MEDS ORDERED: Albuterol/Ipratropium 3ml neb HHN PRN (14:30)
--- NOTE | 2019-09-02 16:36 | NUR ---
NURSE NOTES: Received d/c home order from Dr. Boland. Tried calling daughter to sampler pickup pt but voicemail is full. Unable to leave message. Will try again.
[2019-09-02] MEDS ORDERED: ELIQUIS5 MG PO (16:52)
[2019-09-02] MEDS ORDERED: DIGOXIN250 MCG ORAL (16:54)
--- NOTE | 2019-09-02 16:54 | NUR ---
NURSE NOTES: Removed PICC line on MADELEINE. Tip of the catheter intact. No Bleeding noted after putting pressure for 5 minutes. Placed dressing over site of removal.
[2019-09-02] MEDS ORDERED: QUETIAPINE FUMA25 MG ORAL (16:55)
[2019-09-02] MEDS ORDERED: traMADol 50mg tab ORAL PRN (17:00)
[2019-09-02] MEDS ORDERED: NS 275ml ONE (17:15)
--- NOTE | 2019-09-02 18:33 | NUR ---
NURSE NOTES: Tried calling daughter Benjamin multiple times no answer and her voicemail is full and unable to leave message. Tried calling Her grandson Tera and he states that he will relay message to mother.
--- NOTE | 2019-09-02 19:21 | NUR ---
HAND-OFF: Report given to ABI Morales. Endorsed plan of care.
--- NOTE | 2019-09-02 19:21 | NUR ---
NURSE NOTES: Received report from ABI Dickerson. Patient is awake, alert and oriented x 2, forgetful and confused. On CCHO (Medium), mechanical soft, instructed and amenable. Patient is on fall precaution. Safety measures are in placed, bed in lowest and locked position, side rails up x 2. Call light button and bediside table within reach, will continue plan of care.
[2019-09-02] MEDS ORDERED: Dyna-Hex 2% Top Sol 2oz TOPIC SCH (20:00)
--- NOTE | 2019-09-02 20:30 | NUR ---
NURSE NOTES: Called Patient's Grandson "Tera" several times and left a message to follow-up if what time he will come to pick up attendant the patient and didn't received any call back.
--- NOTE | 2019-09-02 20:40 | NUR ---
NURSE NOTES: Called patient's daughter (Benjamin), spoke with her and said that she's not able to pickle sorter her mom marla, but she's able to come by tomorrow morning instead. Informed Pricilla Alonso (Charge Nurse) and Yeny (Link Trainer Operator), [employer] can only offer taxi voucher up to 10 miles, but patient lives in [place] and that is almost 14 to 19 miles depending on their route from here. Called the taxi company and spoke with "Ingrid" and she states that it will cost $58 but since there's a voucher they are going to deduct $30 and patient still need to pay the excess charge of $28 to be paid in dotson directly to the funeral driver. Called patient's daughter (Benjamin) again and she said that her daughter (Bri) doesn't have any dotson to pay the $28. And patient's daughter said that not to use the taxi instead, and she'll come machine washer between 8 a.m to 9 a.m to pickle sorter her mother.
--- NOTE | 2019-09-02 20:42 | NUR ---
NURSE NOTES: Informed Dr. Boland and informed him that no one is available to machine operator hop picker the patient. And he agreed to discharge the patient tomorrow instead.
[2019-09-02] MEDS ORDERED: BusPIRone 5mg Tab ORAL SCH (21:00)
[2019-09-02] MEDS ORDERED: Levemir Flexpen SUBQ SCH (21:00)
[2019-09-03] VITALS: BP 112/59
--- NOTE | 2019-09-03 01:30 | Progress Note ---
DATE: 09/02/2019 SUBJECTIVE: This is elderly female came with atrial fibrillation with rapid ventricular rate. The patient's heart rate is controlled with beta-radha and digoxin. Physically, she is doing better. HOSPITAL COURSE: The patient has seen the seat joiner chainstitch and Pulmonary. Her short of breath is improving too. PHYSICAL EXAMINATION: VITAL SIGNS: Current blood pressure 133/78, pulse 86, no fever, respirations 20s. HEENT: NAD. CHEST: Bilateral decreased breath sounds. CARDIOVASCULAR: Regular rhythm. ABDOMEN: Soft. Positive bowel sounds. EXTREMITIES: CCE. NEUROLOGICAL: No focal deficit. LABORATORY DATA: White counts are 9.9, hemoglobin 13, hematocrit 40, platelets are 313. Chemistry panel, sodium 134, potassium 4.4, BUN 9, creatinine 0.8, glucose 151. Troponins are negative. Urine was negative. Toxicology was positive for opiates because she is taking [place]. ASSESSMENT AND PLAN: 1. Atrial fibrillation with rapid ventricular rate. 2. Depression. 3. Anxiety. 4. CHF. 5. COPD. DIET: She is on 2 grams sodium, 1800 ADA diet. ACTIVITY: As tolerated. DISCHARGE MEDICATIONS: Continue aspirin, digoxin. Continue levothyroxine, Lipitor. Continue BuSpar. Continue Levemir, metoprolol, and Seroquel. Clemente Boland M.D. DR: Rupali JOB#: [id number] CC:
[2019-09-03 04:00] VITALS: BP 115/56
[2019-09-03] MEDS: NovoLOG Insulin Flexpen SUBQ SCH (06:08)
--- NOTE | 2019-09-03 07:12 | NUR ---
HAND-OFF: Report given to ABI Fernandez. Patient is awake, on bed, sitting on bed with no complaints made at this time. RN made aware of patient's discharge status for today. Plan of care endorsed.
--- NOTE | 2019-09-03 07:22 | NUR ---
NURSE NOTES: Pt in bed in low position, is able to ambulate steadily, waiting on daughter to pick her up for discharge, discharge paper work printed with aftercare plan and med recon, pt was educated on plan of care, no iv, pt Ox3 baseline, calm and cooperative, pt is dressed, daughter called to find out what time she will be picking her up and stated she was on her way.
[2019-09-03] MEDS: Eliquis 5mg tablet ORAL SCH (07:37)
[2019-09-03] MEDS: Memantine 10mg tab ORAL SCH (07:37)
[2019-09-03] MEDS: Metoprolol Tartrate 50mg tab ORAL SCH (07:37)
[2019-09-03 08:00] VITALS: BP 148/87
--- NOTE | 2019-09-03 08:47 | NUR ---
NURSE NOTES: Pt was given a copy of her prescription due to unable to locate original prescription, pt was taken by wheel chair down to lobby for daughter to pick her up. pt got dressed and was excited to go home, pt stated she had a pleasant experience. ID band removed. pt left without incident.
[2019-09-03] MEDS ORDERED: Docusate 250mg cap ORAL SCH (09:00)
[2019-09-03] MEDS ORDERED: Aspirin Baby 81mg ORAL SCH (09:00)
--- NOTE | 2019-09-03 18:48 | Psych Consult Progress Note ---
Psychiatry Progress Note Psychiatry Progress Note Subjective 09/02/19 Medications the pt is having episodes o agitation Neurological/Psychiatric: Reports: anxiety, depressed Allergies: Coded Allergies: MORPHINE (Verified Allergy, Mild, Rash, 08/23/12) SHELLFISH DERIVED (Unverified Allergy, Unknown, 01/01/15) ZOLPIDEM TARTRATE (Verified Adverse Reaction, Mild, Altered Mental Status , 11/09/12) severe confusion Objective Data Height (Feet): 5 Height (Inches): 3.50 Weight (Pounds): 166 General Appearance: no apparent distress, alert, confused, agitated Behavior Mannerisms: poor eye contact Mental Status Exam - Affect: constricted Mental Status Exam - Mood: anxious Mental Status Exam - Thought P: tangential Mental Status Exam - Suicidal: not present Assessment/Plan Problem List: (1) Dementia with behavioral disturbance ICD Codes: F03.91 - Unspecified dementia with behavioral disturbance SNOMED: 9971465158255 Status: not improved, unchanged Assessment/Plan: dc trazadone seroquel standing and prn provided Angela Chapin MD Sep 03, 2019 18:48
--- NOTE | 2019-09-03 21:00 | Discharge Summary ---
DATE OF ADMISSION: 08/30/2019 DATE OF DISCHARGE: 09/03/2019 SUBJECTIVE: This 73-year-old female was admitted with AFib with rapid ventricular rate, acute COPD, CHF, hypertension. Patient was treated with metoprolol, digoxin. Cardiology consult was obtained. Also treated with IV Lasix, bronchodilator treatment. Cardiology, Pulmonary consult was obtained. Patient is physically doing better. Heart rate is 80s. Patient is going to go home with follow up as outpatient. Prescription was given. DIET: She is on 1800-ADA diet. ACTIVITY: As tolerated. Hospital course was otherwise unremarkable. Clemente Boland M.D. DR: ANAM JOB#: [id number] CC:
--- NOTE | 2019-09-04 18:10 | Discharge Summary ---
Discharge Summary Discharge Summary _ Please refer to dc summary as dictated by Dr Boland FINAL DIAGNOSES: Atrial fibrillation with rapid ventricular response Acute COPD CHF Hypertension Coronary artery disease Chest pain, likely due to atrial fibrillation with rapid ventricular response Diabetes mellitus Hyperlipidemia History of CVA GERD History of depression Dementia with behavioral disturbances Lola Armstrong NP Sep 04, 2019 18:10
== END 2019-09-03 08:50 | disposition home or self-care (01) | DRG 308 ==
LOC: EMR 14:46 → 2E 15:14 → EDBEDREQ 17:41 → ICU 08-31 → 2E 09-02 11:50
PROC: 05H533Z Insertion of Infusion Device into Right Subclavian Vein, Percutaneous Approach (ICD-10-PCS; principal; 2019-08-31)
DX: I48.91 Unspecified atrial fibrillation (principal); I50.31 Acute diastolic (congestive) heart failure; J44.1 Chronic obstructive pulmonary disease with (acute) exacerbation; F03.91 Unspecified dementia, unspecified severity, with behavioral disturbance; I11.0 Hypertensive heart disease with heart failure; F32.9 Major depressive disorder, single episode, unspecified; K21.0 Gastro-esophageal reflux disease with esophagitis; Z86.73 Personal history of transient ischemic attack (TIA), and cerebral infarction without residual deficits; M19.90 Unspecified osteoarthritis, unspecified site; R07.9 Chest pain, unspecified; I25.10 Atherosclerotic heart disease of native coronary artery without angina pectoris; E11.9 Type 2 diabetes mellitus without complications; E78.5 Hyperlipidemia, unspecified; Z88.6 Allergy status to analgesic agent
CPT/HCPCS: 36415; 36569; 71045; 76937; 80053; 80162; 80307; 81003; 82962; 83880; 84484; 85025; 85610; 85730; 93005; 93306; 94664; 96374; 96376; 99291; J1815; S5561